=== PATIENT | female | born 1985 | race Caucasian/White ===

== ENCOUNTER 2020-03-07 07:27 | Outpatient (REF) | payer OTHER, SELFPAY | END 2020-03-07 07:28 | disposition home or self-care (01) | LOC: HO.LAB 07:27 | PROVIDERS: Visit Provider Internal Medicine | DX: Z20.822 Contact with and (suspected) exposure to COVID-19 (principal) | CPT/HCPCS: 36415; C9803; U0003 ==

== ENCOUNTER 2020-03-24 07:31 | Outpatient (REF) | payer OTHER, SELFPAY | END 2020-03-24 07:32 | disposition home or self-care (01) | LOC: HO.LAB 07:31 | PROVIDERS: Visit Provider Internal Medicine | DX: Z20.822 Contact with and (suspected) exposure to COVID-19 (principal) | CPT/HCPCS: 36415; C9803; U0003 ==

== ENCOUNTER → 2021-06-07 08:10 | Outpatient (BNVA) | payer OTHER, SELFPAY | PROVIDERS: PCP Hospitalist; Referring Provider Hospitalist; Visit Provider Physician Assistant Surgical | DX: Z13.89 Encounter for screening for other disorder (principal) ==

== ENCOUNTER → 2021-06-09 08:11 | Outpatient (BNVA) | payer OTHER, SELFPAY | PROVIDERS: PCP Hospitalist; Visit Provider Surgery | DX: Z13.89 Encounter for screening for other disorder (principal) ==

== ENCOUNTER 2021-06-21 | Outpatient (REF) | payer OTHER, SELFPAY ==
[2021-06-22 14:59] LABS: H Pylori Breath Test Positive (Negative)
== END 2021-06-21 00:01 | disposition home or self-care (01) ==
LOC: HO.LNP
PROVIDERS: Visit Provider Surgery
DX: E66.01 Morbid (severe) obesity due to excess calories (principal); K21.9 Gastro-esophageal reflux disease without esophagitis
CPT/HCPCS: 83013

== ENCOUNTER 2021-06-21 08:24 | Outpatient (REF) | payer OTHER, SELFPAY ==
--- NOTE | ~2021-06-21 | XR_ITS ---
EXAMINATION: XR CHEST CLINICAL INFORMATION: Obesity. Preop. COMPARISON: None TECHNIQUE: 2 views of the chest were obtained. FINDINGS: No significant abnormality is noted involving the heart, lungs, mediastinum, bony thorax or soft tissues. XR/XR chest 2V IMPRESSION: Unremarkable examination.
--- NOTE | 2021-06-21 08:33 | ECG_ITS ---
Test Reason : OBESITY Blood Pressure : / mmHG Vent. Rate : 073 BPM Atrial Rate : 073 BPM P-R Int : 122 ms QRS Dur : 080 ms QT Int : 390 ms P-R-T Axes : -05 022 096 degrees QTc Int : 429 ms Normal sinus rhythm Nonspecific T wave abnormality Borderline ECG No previous ECGs available Referred By: Joby Sparks Electronically Signed By:DANNY BASS
[2021-06-21 08:46] LABS: MANUAL DIFF FLAG NO
[2021-06-21 09:18] LABS: Basophils Percent Auto 0.3 % (0-2); Eosinophils Absolute Auto 0.1 X10*3/uL (0.0-0.4); Eosinophils Percent Auto 0.9 % (0-4); Hematocrit 35.6 % (37.0-47.0); Imm Gran Abs Auto 0.03 X10*3/uL (0.00-0.03); Imm Gran Pct Auto 0.3 % (0.0-0.4); Lymphocytes Absolute Auto 3.4 X10*3/uL (1.2-4.9); Lymphocytes Percent Auto 36.1 % (20-40); Mean Corpuscular HGB Conc 30.9 g/dl (31.0-35.0); Mean Corpuscular Hemoglobin 25.1 pg (27.0-33.0); Mean Corpuscular Volume 81.1 fL (80.0-98.0); Mean Platelet Volume 10.8 fL (9.4-12.3); Monocytes Absolute Auto 0.6 X10*3/uL (0.1-1.2); Neutrophils Absolute Auto 5.2 x10*3/uL (2.0-8.3); Neutrophils Percent Auto 56.4 % (45-73); Platelet Count 333 X10*3/uL (160-400); Red Blood Count 4.39 X10*6/uL (4.20-5.50); Red Cell Distribution Width 15.2 % (11.0-16.0); White Blood Count 9.3 X10*3/uL (4.8-10.8)
[2021-06-21 09:43] LABS: Alanine Aminotransferase 24 U/L (0-31); Albumin Level 3.7 g/dL (3.5-5.0); Alkaline Phosphatase 74 U/L (39-117); Anion Gap 10 (12-20); Aspartate Amino Transferase 22 U/L (5-31); Bilirubin Total 0.4 mg/dL (0.0-1.0); Blood Urea Nitrogen 12 mg/dL (9-16); C Reactive Protein 1.98 mg/dL (< or = 0.50); Calcium 9.2 mg/dL (8.4-10.2); Carbon Dioxide 29 mmol/L (22-29); Chloride 104 mmol/L (96-108); Cholesterol 192 mg/dL; Estimated Glomerular Filt Rate > 60; Glucose Random 83 mg/dL (60-115); HDL Cholesterol 31 mg/dL; Iron 37 mcg/dL (30-160); LDL Cholesterol Calculated 130 mg/dl; Percent Iron Saturation 10 % (15-50); Potassium 4.8 mmol/L (3.3-5.1); Sodium 138 mmol/L (135-145); Total Iron Binding Capacity 379 mcg/dL (228-428); Total Protein 7.6 g/dL (6.5-8.0); Triglycerides 157 mg/dL; Unsaturated Iron Binding 342 ug/dL
[2021-06-21 10:03] LABS: Estimated Average Glucose 105 mg/dL; Hemoglobin A1c % 5.3 %
[2021-06-21 10:18] LABS: Ferritin 23 ng/mL (10-122); TSH reflex Free T4 3.62 uIU/mL (0.32-4.0); Vitamin D 25-OH Total 12.4 ng/mL (>30)
[2021-06-21 10:25] LABS: Folate 15.4 ng/mL (> or = 4.0); Vitamin B12 411 pg/mL (200-900)
[2021-06-21 10:53] LABS: Insulin 14 uU/mL (2-29)
[2021-06-22 11:27] LABS: PTHI 101 pg/mL (16-77)
[2021-06-24 12:50] LABS: Zinc 68 mcg/dL (60-130)
[2021-06-25 21:11] LABS: Vitamin A 37 mcg/dL (38-98)
[2021-06-26 12:56] LABS: Vitamin B1 16 nmol/L (8-30)
== END 2021-06-21 08:25 | disposition home or self-care (01) ==
LOC: HO.XRAY 08:24
PROVIDERS: PCP Hospitalist; Visit Provider Surgery
DX: E66.01 Morbid (severe) obesity due to excess calories (principal); K21.9 Gastro-esophageal reflux disease without esophagitis
CPT/HCPCS: 36415; 71046; 80053; 80061; 82306; 82607; 82728; 82746; 83036; 83525; 83540; 83970; 84425; 84443; 84590; 84630; 85025; 86140; 93005

== ENCOUNTER → 2021-06-28 09:00 | Outpatient (BNVA) | payer OTHER, SELFPAY | PROVIDERS: PCP Hospitalist; Visit Provider Counselor Mental Health | DX: F43.21 Adjustment disorder with depressed mood (principal); E66.01 Morbid (severe) obesity due to excess calories | CPT/HCPCS: 90791 ==

== ENCOUNTER → 2021-07-23 08:42 | Outpatient (BNVA) | payer OTHER, SELFPAY | PROVIDERS: PCP Hospitalist; Referring Provider Hospitalist; Visit Provider Dietitian, Registered | DX: E66.01 Morbid (severe) obesity due to excess calories (principal); Z68.41 Body mass index [BMI] 40.0-44.9, adult | CPT/HCPCS: 97802 ==

== ENCOUNTER 2021-07-29 09:50 | Outpatient (REF) | payer OTHER, SELFPAY ==
--- NOTE | ~2021-07-29 | US_ITS ---
EXAMINATION: US COMPLETE ABDOMEN WITH LIVER ELASTOGRAPHY CLINICAL INFORMATION: Moderate obesity. COMPARISON: None. TECHNIQUE: Real-time imaging of the abdominal viscera. Noninvasive ultrasound liver fibrosis assessment is performed using Kya ElastPQ point quantification shear wave elastography (2D-SWE) with a C5-2 MHz transducer. Multiple elastography samples are obtained. FINDINGS: PANCREAS: The visualized pancreatic head and body are normal in appearance. The remainder of the pancreas is obscured from visualization by the overlying bowel gas. ABDOMINAL AORTA: The proximal, middle, and distal aortic segments are normal in caliber. INFERIOR VENA CAVA: Visualized portions are normal. LIVER: Normal. The liver demonstrates normal size, contour and echogenicity. No focal lesion or intrahepatic biliary duct dilatation. The right lobe measures 16.9 cm in length. The left lobe measures 11.6 cm in length. Portal flow is hepatopetal. Shear wave liver elastography median stiffness is 1.48 m/s (reference: normal median stiffness is 1.3 m/s or less). IQR/median stiffness to assess sampling precision is 0.08 (reference: good quality data set is IQR/median stiffness of 0.15 or less). GALLBLADDER: Normal. The gallbladder is physiologically distended without evidence of stones, sludge, polyps, wall thickening or pericholecystic fluid. COMMON BILE DUCT: Normal in caliber measuring 0.5 cm in diameter. RIGHT KIDNEY: Normal. No hydronephrosis. No renal calculi or focal parenchymal lesions. The kidney measures 10.7 cm in maximum dimension. LEFT KIDNEY: Normal. No hydronephrosis. No renal calculi or focal parenchymal lesions. The kidney measures 11.4 cm in maximum dimension. SPLEEN: Normal. The spleen measures 10.7 cm in maximum dimension. FREE FLUID: None. US/US abdomen comp w elastography IMPRESSION: 1. Hepatic steatosis. 2. Liver elastography: In the absence of other known clinical signs, measurements rule out compensated advanced chronic liver disease. If there are known clinical signs, further testing may be needed for confirmation. REFERENCE: Society of Radiologists in Ultrasound Liver Stiffness Thresholds (2020): LIVER STIFFNESS THRESHOLDS: *Liver Stiffness equal or less than 1.3 m/s: High probability of being normal. *Liver Stiffness less than 1.7 m/s: In the absence of other known clinical signs, rules out compensated advanced chronic liver disease. *Liver Stiffness 1.7-2.1 m/s: Suggestive of compensated advanced chronic liver disease but need further test for confirmation. *Liver Stiffness over 2.1 m/s: Rules in compensated advanced chronic liver disease. *Liver Stiffness over 2.4 m/s: Suggestive of clinically significant portal hypertension. QUALITY OF DATA SET: *IQR/Median value equal or less than 0.15 implies a quality data set. *IQR/Median value over 0.15 implies a poor quality data set. SIGNIFICANT CHANGE FROM PRIOR EXAM: Significant change if liver stiffness measurement is 10% or greater from prior exam. OTHER CONSIDERATIONS: The stage of liver fibrosis may be overestimated in the setting of acute hepatitis, liver inflammation, elevated liver function tests, hepatic vascular congestion, obstructive cholestasis, non-fasting state, and infiltrative diseases such as amyloidosis and lymphoma. In some patients with NAFLD, the liver stiffness thresholds for compensated advanced chronic liver disease may be lower. In causes other than viral hepatitis and NAFLD, liver stiffness thresholds are not well established.
--- NOTE | ~2021-07-29 | FL_ITS ---
EXAMINATION: XR FLUOROSCOPY UPPER GI WITH AIR CLINICAL INFORMATION: Moderate/severe obesity due to excess calories. COMPARISON: None TECHNIQUE: Routine upper GI air-contrast exam was performed in upright and lying position. FINDINGS: Following oral administration of thick barium and effervescent granules in upright view there is normal propagation bolus from the oral cavity through the pharynx, esophagus into stomach without any evidence of obstruction, narrowing or stricture. On placing patient supine and prone lying there is mild gastroesophageal reflux without hiatal hernia. The course, caliber and peristalsis of the stomach and the duodenum is normal. The mucosal pattern of the stomach and the duodenum is normal. A prominent Selin's gland is seen within the second segment of the duodenum on T2 images. FLUOROSCOPY TIME: 1.2 minutes DOSE AREA PRODUCT: 56.485 uGy-m2 (microgray-meter squared) FL/FL upper GI w air IMPRESSION: Moderate gastroesophageal reflux without hiatal hernia
== END 2021-07-29 09:51 | disposition home or self-care (01) ==
LOC: HO.US 09:50
PROVIDERS: Visit Provider Surgery
DX: E66.01 Morbid (severe) obesity due to excess calories (principal); K21.9 Gastro-esophageal reflux disease without esophagitis
CPT/HCPCS: 74246; 76705; 76981

== ENCOUNTER → 2021-07-30 08:34 | Outpatient (BNVA) | payer OTHER, SELFPAY | PROVIDERS: PCP Hospitalist; Referring Provider Hospitalist; Visit Provider Physician Assistant | DX: Z13.89 Encounter for screening for other disorder (principal) ==

== ENCOUNTER 2021-07-30 16:55 | Outpatient (REF) | payer OTHER, SELFPAY ==
[2021-07-31 15:18] LABS: H Pylori Breath Test Negative (Negative)
== END 2021-07-30 16:56 | disposition home or self-care (01) ==
LOC: HO.LNP 16:55
PROVIDERS: Visit Provider Physician Assistant
DX: Z01.818 Encounter for other preprocedural examination (principal); Z11.0 Encounter for screening for intestinal infectious diseases
CPT/HCPCS: 83013

== ENCOUNTER 2023-01-07 16:00 | Emergency (ER) | payer OTHER, SELFPAY ==
--- NOTE | ~2023-01-07 | XR_ITS ---
EXAMINATION: XR CHEST CLINICAL INFORMATION: Chest pain. COMPARISON: Chest radiograph 06/21/2021. TECHNIQUE: 2 views of the chest were obtained. FINDINGS: Unchanged appearance of the cardiomediastinal silhouette. No focal airspace opacities, pleural effusion or pneumothorax. No acute osseous findings. Visualized upper abdomen is within normal limits. XR/XR chest 2V IMPRESSION: No acute cardiopulmonary findings.
--- NOTE | 2023-01-07 16:02 | ECG_ITS ---
Test Reason : CHEST PAIN Blood Pressure : / mmHG Vent. Rate : 093 BPM Atrial Rate : 093 BPM P-R Int : 122 ms QRS Dur : 084 ms QT Int : 358 ms P-R-T Axes : 051 014 151 degrees QTc Int : 445 ms Normal sinus rhythm ST & T wave abnormality, consider lateral ischemia Abnormal ECG When compared with ECG of 21-JUN-2021 08:44, T wave inversion more evident in Lateral leads Heart rate has increased Referred By: Sameera Lucas Electronically Signed By:GLENROY GAN MD
[2023-01-07 16:12] VITALS: BP 201/93; PULSE 93; RESP 18; TEMP 36.2; O2SAT 98; BMI 55.5
[2023-01-07 16:27] LABS: MANUAL DIFF FLAG NO
[2023-01-07 16:28] LABS: Basophils Percent Auto 0.3 % (0-2); Eosinophils Absolute Auto 0.3 X10*3/uL (0.0-0.4); Eosinophils Percent Auto 1.9 % (0-4); Hematocrit 32.4 % (37.0-47.0); Hemoglobin 9.6 g/dl (12.0-16.0); Imm Gran Abs Auto 0.07 X10*3/uL (0.00-0.03); Imm Gran Pct Auto 0.5 % (0.0-0.4); Lymphocytes Percent Auto 20.7 % (20-40); Mean Corpuscular HGB Conc 29.6 g/dl (31.0-35.0); Mean Corpuscular Hemoglobin 23.8 pg (27.0-33.0); Mean Corpuscular Volume 80.2 fL (80.0-98.0); Mean Platelet Volume 10.6 fL (9.4-12.3); Monocytes Absolute Auto 1.1 X10*3/uL (0.1-1.2); Monocytes Percent Auto 7.1 % (2-11); Neutrophils Absolute Auto 10.2 x10*3/uL (2.0-8.3); Neutrophils Percent Auto 69.5 % (45-73); Platelet Count 343 X10*3/uL (160-400); Red Blood Count 4.04 X10*6/uL (4.20-5.50); Red Cell Distribution Width 16.5 % (11.0-16.0); White Blood Count 14.7 X10*3/uL (4.8-10.8)
--- NOTE | 2023-01-07 16:32 | ED_ITS ---
HPI - Chest Pain General Chief Complaint: Chest Pain Stated Complaint: chest pain Time Seen by Provider: 01/07/23 21:52 Source: patient Mode of arrival: ambulatory Limitations: no limitations History of Present Illness HPI narrative: Patient is a 29-year-old female with history of GERD, depression, anemia, obesity presenting to the emergency department with complaint of nasal congestion, cough and wheezing for the past 2 days. Reports today developed chest and rib pain associated with coughing episodes. Reports subjective fever yesterday, none today. Denies ear pain or sore throat. Denies history of asthma. Denies history of HTN. Has not used any OTC medications. complaint: other (shortness of breath) Onset (ago): day(s) Timing of current episode: episodic Prior episodes: Yes Onset: other (during coughing) Pain location: right chest Pain radiation: none Severity: moderate Quality: tightness Relieving factors: nothing Exacerbating factors: other (coughing) Context: recent illness Associated symptoms: dyspnea, fever and cough Treatment prior to arrival: none Related Data Previous Rx's Medication Instructions Recorded cholecalciferol (vitamin D3) 125 125 mcg PO DAILY #30 caps 06/23/21 mcg (5,000 unit) capsule iron,carbonyl 65 mg-vitamin C 125 1 tab PO DAILY #30 tabs 06/23/21 mg tablet,delayed release (Vitron-C) mecobalamin (vitamin B12) 1,000 1,000 mcg sublingual DAILY #30 tabs 06/23/21 mcg disintegrating tablet,sublingual vitamin A palmitate 3,000 mcg 10,000 unit PO .COMPLEX #30 caps 07/01/21 (10,000 unit) capsule albuterol sulfate 90 mcg/actuation 2 puff inhalation Q4-6H PRN 01/07/23 aerosol inhaler shortness of breath or wheezing #6.7 grams azithromycin 250 mg tablet See Rx Instructions PO .COMPLEX #6 01/07/23 tabs benzonatate 100 mg capsule 100 mg PO TID PRN cough #20 caps 01/07/23 Allergies Allergy/AdvReac Type Severity Reaction Status Date / Time No Known Allergies Allergy Verified 06/09/21 13:12 [No Known Allergies*] Review of Systems 2 Review of Systems: As per HPI. Yes all other systems are reviewed and are negative PMFSH Past Medical History Medical History (Updated 01/07/23 @ 23:02 by Marissa Cervantes NP) Depression GERD (gastroesophageal reflux disease) Family History Family History (Updated 06/07/21 @ 08:33 by Sherita Michaels) Maternal Grandmother Ovarian cancer Maternal Aunt Ovarian cancer Sister Asthma Sister Family history of thyroid problem Social History Social History (Updated 06/07/21 @ 08:34 by Sherita Michaels) Alcohol intake: current Alcohol intake frequency: holidays/special occasions only Alcohol type: beer, wine and hard liquor Patient Tobacco Use Status: Former Tobacco user Smoked in Last 30 Days: No Use of substances other than those prescribed or required for medical reasons: No Advance Directives: No Advance Directives Information Provided: No Patient : No Physical Exam 2 Vital Signs: Vital Signs: Last Vital Signs Temp 99.0 F 01/07/23 22:12 Pulse 71 01/07/23 22:29 Resp 18 01/07/23 22:29 BP 159/108 H 01/07/23 22:12 Pulse Ox 98 01/07/23 22:12 O2 Del Method Room Air 01/07/23 22:12 BMI result Body Mass Index 55.5 Vital signs have been reviewed and appear to be correct. Blood pressure elevated. Heart rate normal. Respiratory rate normal. Temperature normal. Oxygen saturation normal. Const: General: cooperative, no acute distress, alert and awake Nutritional Appearance: obese morbidly obese Orientation/consciousness: patient oriented x3 Limitations: no limitations HEENT: Head: Yes normocephalic and Yes atraumatic Ears: hearing grossly normal bilaterally, TM's normal bilaterally and EAC's normal General nose exam: Normal external nose present Face and sinus: Yes normal facial exam and Yes sinuses nontender Mouth: Normal oral and palatal mucosa present T hroat: Yes posterior oropharynx normal, Yes uvula midline and No uvular edema Eyes: Pupils: Equal, round and reactive pupils present Neck: Neck: Yes normal visual inspection, Yes full ROM and Yes supple Resp: Effort & Inspection: normal respiratory effort Auscultation: wheezes expiratory wheezes and throughout Cardio: Rate: regular rate Rhythm: regular rhythm Heart sounds: S1 normal heart sound present and S2 normal heart sound present GI: Inspection: Yes normal to inspection Palpation (GI): Soft to palpation and nontender Auscultation: normoactive bowel sounds : General: Yes no CVA tenderness Back/Spine/Pelvis: Back: no CVA tenderness Skin: General skin exam: elasticity normal and turgor normal Neuro: General: patient oriented x3, gait normal, tone normal, moves all extremities and CN's II-XI intact bilaterally Cranial nerves: Yes Equal, round and reactive pupils present Extrem: General: Yes normal to inspection, Yes full ROM, Yes capillary refill normal, Yes no calf tenderness and Yes pedal edema Psych: Appearance: grossly normal Mental Status: mental status grossly normal Speech and movement: Normal speech and movement present Course Course Course Narrative: this is a rapid medical exam. Defer additional HPI, ROS, PE to primary provider. 37-year-old female with a history of obesity presents to the ER with complaints of cough, congestion and chest pain. Will obtain labs, EKG, chest x-ray, COVID screen VSS Medications Administered Discontinued Medications Generic Name Dose Route Start Last Admin Trade Name Freq PRN Reason Stop Dose Admin Albuterol Sulfate 2.5 mg/ 5 mg 01/07/23 22:18 01/07/23 22:23 Albuterol Sulfate 2.5 mg INHALE 01/07/23 22:19 5 mg ONCE ONE Administration Medical Decision Making Medical Decision Making [facility] Narrative: Patient is a 29-year-old female with history of GERD, depression, anemia, obesity presenting to the emergency department with complaint of nasal congestion, cough and wheezing for the past 2 days. On exam patient is awake, A+Ox3, BP elevated, VS otherwise WNL, afebrile, normal neurological exam without focal deficits, physical exam findings as above. Given reported symptoms and physical exam findings, initial differential includes viral illness, Covid, flu, RSV, bronchitis, pneumonia, ACS. Labs notable for leukocytosis, anemia, initial troponin 5.9, no delta on repeat troponin. EKG shows normal sinus rhythm, rate 93 bpm, ST depression in lateral leads. HEART score of 3. Swabs for flu/Covid/RSV all negative. X-ray notable for no acute abnormalities. My interpretation is in agreement with the radiologist's interpretation. ED bronchodilator protocol ordered. Will discharge home with azithromycin, albuterol inhaler, patient given spacer by RT, and benzonatate. Instructed patient to follow up with PCP this week and instructed patient to notify PCP of high BP readings while in the ED. All results discussed with patient and all questions answered. Return precautions discussed at bedside. Patient verbalized understanding of and agreement with plan. Differential Diagnosis Differential Diagnoses: The differential diagnosis associated with the presentation includes As per MDM. Admission/Observation Consideration of admission/observation: Escalation of care including admission/observation considered Given concern for ACS, considered on arrival Lab Data [facility] Lab Attestation statement: I reviewed the patient's lab results. As per MDM. 01/07/23 16:18 01/07/23 16:18 Labs: Lab Results 01/07/23 01/07/23 01/07/23 Range/Units 16:18 16:19 22:09 WBC 14.7 H (4.8-10.8) X10*3/uL RBC 4.04 L (4.20-5.50) X10*6/uL Hgb 9.6 L (12.0-16.0) g/dl Hct 32.4 L (37.0-47.0) % MCV 80.2 (80.0-98.0) fL MCH 23.8 L (27.0-33.0) pg MCHC 29.6 L (31.0-35.0) g/dl RDW 16.5 H (11.0-16.0) % Plt Count 343 (160-400) X10*3/uL MPV 10.6 (9.4-12.3) fL Immature Gran % (Auto) 0.5 H (0.0-0.4) % Neut % (Auto) 69.5 (45-73) % Lymph % (Auto) 20.7 (20-40) % [place] % (Auto) 7.1 (2-11) % Eos % (Auto) 1.9 (0-4) % Baso % (Auto) 0.3 (0-2) % Lymph # (Auto) 3.0 (1.2-4.9) X10*3/uL [place] # (Auto) 1.1 (0.1-1.2) X10*3/uL Eos # (Auto) 0.3 (0.0-0.4) X10*3/uL Baso # (Auto) 0.0 (0.0-0.2) X10*3/uL Abs Immat Gran (auto) 0.07 H (0.00-0.03) X10*3/uL Absolute Neuts (auto) 10.2 H (2.0-8.3) x10*3/uL Absolute Nucleated RBC 0.000 (0.0-0.012) X10*3/uL Nucleated RBC % (auto) 0.0 (0.0-0.2) /100WBC Sodium 140 (135-145) mmol/L Potassium 3.6 D (3.3-5.1) mmol/L Chloride 107 (96-108) mmol/L Carbon Dioxide 26 (22-29) mmol/L Anion Gap 11 L (12-20) BUN 14 (9-16) mg/dL Creatinine 0.94 (0.5-1.4) mg/dL Estim Creat Clear Calc 113.1 Estimated GFR > 60 Random Glucose 94 (60-115) mg/dL Calcium 8.7 (8.4-10.2) mg/dL Total Bilirubin 0.3 (0.0-1.0) mg/dL Direct Bilirubin 0.2 (0.0-0.5) mg/dL AST 19 (5-31) U/L ALT 23 (0-31) U/L Alkaline Phosphatase 86 (39-117) U/L Troponin I High Sens 5.9 7.5 (<3.5-17.0) ng/L Total Protein 7.8 (6.5-8.0) g/dL Albumin 3.6 (3.5-5.0) g/dL Lipase 23 (8-78) U/L Influenza Type A (PCR) NEGATIVE (Negative) Influenza Type B (PCR) NEGATIVE (Negative) RSV RNA Qual (PCR) NEGATIVE (Negative) SARS-CoV-2 RNA (RT-PCR) NEGATIVE (Negative) Independent Interpretation I performed an independent interpretation of an: EKG and Plain X-Ray Interpretation: No acute abnormalities on chest x-ray EKG shows normal sinus rhythm, rate 93 bpm, ST depression in lateral leads. Radiology Impression Discussion of test interpretation with radiology: I have reviewed the radiologist's reading. Radiologist Impression: XR/XR chest 2V IMPRESSION: No acute cardiopulmonary findings. External Record Review External record reviewed: Inpatient record, Office record and Outpatient record Prescription Management I considered prescription management with: Antibiotic and Other Scores Heart Score History: -0- slightly suspicious ECG: -2- significant ST-deviation Age: -0- < or = 45 Risk factory: -1- 1 or 2 risk factors Troponin: -0- < or = normal limit Score: 3 Risk: 1.7% Discharge Plan Discharge Clinical Impression: Bronchitis Patient Disposition: Home, Self-Care Instructions: How to Use a Metered-Dose Inhaler (ED), Acute Bronchitis (ED) Additional Instructions: You were evaluated in the emergency department today for shortness of breath and wheezing. You are being treated for bronchitis with antibiotics, please complete the full course as prescribed. You are being prescribed an albuterol inhaler which you can use every 4-6 hours as needed for shortness of breath. You are being prescribed benzonatate which you can use every 8 hours as needed for cough. Please follow-up with your primary care provider this week. Your blood pressure was elevated in the emergency department, please notify your primary care provider of this. Return to the emergency department if you develop worsening shortness of breath, chest pain, palpitations, fever 100.4? F or greater, or any other concerning symptoms. Prescriptions: New azithromycin 250 mg tablet See Rx Instructions .ROUTE .COMPLEX Qty: 6 0RF Rx Instructions: For 250 mg dose pack: take 500 mg today (day 1), then 250 mg for 4 days (days 2-5) benzonatate 100 mg capsule 100 mg PO TID PRN (Reason: cough) Qty: 20 0RF albuterol sulfate 90 mcg/actuation HFA aerosol inhaler 2 puff inhalation Q4-6H PRN (Reason: shortness of breath or wheezing) Qty: 6.7 0RF No Action Vitron-C 65 mg iron- 125 mg tablet,delayed release (DR/EC) 1 tab PO DAILY Qty: 30 2RF Rx Instructions: swallow whole; do not chew/break/dissolve/open cholecalciferol (vitamin D3) 125 mcg (5,000 unit) capsule 125 mcg PO DAILY Qty: 30 2RF mecobalamin (vitamin B12) 1,000 mcg tablet,disintegrating 1,000 mcg sublingual DAILY Qty: 30 2RF Rx Instructions: place tablet under tongue and allow to dissolve for at least30 secs before swallowing vitamin A palmitate 10,000 unit capsule 10,000 unit PO .COMPLEX Qty: 30 0RF Rx Instructions: 10,000 units PO one per day;
[2023-01-07 16:44] LABS: Alanine Aminotransferase 23 U/L (0-31); Albumin Level 3.6 g/dL (3.5-5.0); Alkaline Phosphatase 86 U/L (39-117); Anion Gap 11 (12-20); Aspartate Amino Transferase 19 U/L (5-31); Bilirubin Direct 0.2 mg/dL (0.0-0.5); Bilirubin Total 0.3 mg/dL (0.0-1.0); Blood Urea Nitrogen 14 mg/dL (9-16); Calcium 8.7 mg/dL (8.4-10.2); Carbon Dioxide 26 mmol/L (22-29); Chloride 107 mmol/L (96-108); Creatinine Clr Calc Pharmacy 113.1; Estimated Glomerular Filt Rate > 60; Glucose Random 94 mg/dL (60-115); Lipase 23 U/L (8-78); Potassium 3.6 mmol/L (3.3-5.1); Sodium 140 mmol/L (135-145); Total Protein 7.8 g/dL (6.5-8.0)
[2023-01-07 16:52] LABS: Troponin-I High Sensitivity 5.9 ng/L (<3.5-17.0)
[2023-01-07 17:06] LABS: Influenza A PCR NEGATIVE (Negative); Influenza B PCR NEGATIVE (Negative); Resp Syncy Virus RNA Qual PCR NEGATIVE (Negative); SARS COV2 PCR INHOUSE NEGATIVE (Negative)
[2023-01-07 20:30] VITALS: BP 178/77; PULSE 81; RESP 18; O2SAT 98
--- NOTE | 2023-01-07 20:43 | PC.NURSE ---
this rn assumed care of pt. pt a&ox4, respirations even and unlabored. pt reporting onset of chest squeezing and shortness of breath after getting over a cold one week ago. pt reports the SOB increases on exertion and feels as if she can not catch a breath. pt lung sounds noted to have expiratory wheezing bilaterally. pt denies being around any one sick at this time. pt normal sinus on tele 82-85, sating at 98% room air.
[2023-01-07 22:12] VITALS: BP 159/108; PULSE 82; RESP 13; TEMP 37.2; O2SAT 98
[2023-01-07] MEDS: Albuterol Sulfate 2.5 MG, Albuterol Sulfate (0.083%) 2.5 MG 5 MG INHALE (22:23)
[2023-01-07 22:29] VITALS: PULSE 71; RESP 18; O2SAT 97
[2023-01-07 22:44] LABS: Troponin-I High Sensitivity 7.5 ng/L (<3.5-17.0)
[2023-01-07 23:17] VITALS: BP 143/71; PULSE 92; RESP 18; O2SAT 96
== END 2023-01-07 23:18 | disposition home or self-care (01) ==
PROVIDERS: Registered Nurse Emergency; Emergency Provider Student in an Organized Health Care Education/Training Program; PCP Hospitalist
DX: J40 Bronchitis, not specified as acute or chronic (principal); Z20.822 Contact with and (suspected) exposure to COVID-19; Z20.828 Contact with and (suspected) exposure to other viral communicable diseases; R50.9 Fever, unspecified; R06.02 Shortness of breath; I10 Essential (primary) hypertension; E66.9 Obesity, unspecified; Z68.43 Body mass index [BMI] 50.0-59.9, adult; Z79.899 Other long term (current) drug therapy
CPT/HCPCS: 0241U; 36415; 71046; 80048; 80076; 83690; 84484; 85025; 93005; 94640; 99284; 99285

== ENCOUNTER 2023-01-16 07:44 | Outpatient (AMB) | payer OTHER, SELFPAY ==
--- NOTE | 2023-01-16 07:57 | A.OFFPC_ITS ---
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: No Accompanied by: Self / Same As Patient Allergies No Known Allergies [No Known Allergies*] Allergy (Verified 01/16/23 08:14) Medication List - Last Reconciled 01/16/23 by Yulissa Salgado MD albuterol sulfate 90 mcg/actuation 2 puffs inhalation Q4-6H PRN azithromycin For 250 mg dose pack: take 500 mg today (day 1), then 250 mg for 4 days (days 2-5) Tobacco use date assessed: 01/16/23 Dental Screening Dental Screen Date: 01/16/23 Did you have a dental visit in the last 12 months?: No Did you have a dental problem in the last 6 months where you did not have access to dental care?: No Was dental information given to patient?: Patient has dentist HPI HPI Comments History of Present Illness Details This is 37-year-old female with morbid obesity that comes today as a hospital discharge follow-up due to bronchitis discharge date 01/07/2023. Chest x-ray was done and was normal. She completed a [facility] course and feels markedly improve. Labs were done while at the hospital and has elevated white blood cells and low hemoglobin due to anemia most likely due to abnormal menses which this will be repeated. She does have elevated blood pressure that has been present recently. No chest pain or shortness of breath. She does not believe she has any family history of elevated blood pressure. She complains of polyuria and not sleeping well due to going to the bathroom multiple times to urinate. Has hirsutism. For her blood pressure I will start her on amlodipine. Blood pressure will be recheck in 3 weeks by nurse navigator. Ultrasound renal will be order to rule out renal artery stenosis as a cause of elevated blood pressure. Also other labs will be done. For her morbid obesity I will refer her to [facility] weight management. Urinalysis done at the office shows hematuria due to being on her menses. 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 Sleep study will be order. [facility] Medical History (Updated 01/16/23 @ 09:48 by Yulissa Salgado MD) Depression GERD (gastroesophageal reflux disease) Surgical History No pertinent past surgical history Family History Maternal Grandmother Ovarian cancer Maternal Aunt Ovarian cancer Sister Asthma Sister Family history of thyroid problem Mother No problems noted. Social History Housing: Apartment Alcohol intake: current Alcohol intake frequency: holidays/special occasions only Alcohol type: beer, wine and hard liquor Patient Tobacco Use Status: Former Tobacco user e-Cigarette/Vaping Use: Never Used Second Hand Smoke Exposure: No service: No Current occupational status: employed Current occupational exposures/hazards: No Cognitive needs: No Hearing needs: No Vision needs: No Questionnaire PHQ-9 Over the last 2 weeks, how often have you been bothered by any of the following problems? 1. Little interest or pleasure in doing things: not at all 2. Feeling down, depressed, or hopeless: not at all 3. Trouble falling or staying asleep, or sleeping too much: not at all 4. Feeling tired or having little energy: not at all 5. Poor appetite or overeating: not at all 6. Feeling bad about yourself - or that you are a failure or have let yourself or your family down: not at all 7. Trouble concentrating on things, such as reading the newspaper or watching television: not at all 8. Moving or speaking so slowly that other people could have noticed. Or the opposite - being so fidgety or restless that you have been moving around a lot more than usual: not at all 9. Thoughts that you would be better off or of hurting yourself in some way: not at all Total score: 0 Depression Screening Interpretation: Negative Depression Screening Done: Yes 13658 - PHQ-9 Billing: Yes Source: Developed by Eldon Amaroet B.W. Jorge, Alpesh Parker and colleagues, with an educational wilman from [employer]. Thrive Questionnaire Date Thrive assessed: 01/16/23 I am a: Patient What is your living situation today?: I have a steady place to live Within the past 12 months, did the food you bought not last and you didn't have the money to get more?: Never true Within the past 12 months, did you worry whether your food would run out before you got money to buy more?: Never true Do you have trouble paying for medicines?: No Do you have trouble getting transportation to medical appointments?: No Do you have trouble paying your heating and electricity bill?: No Do you have trouble taking care of your child, family member or friend?: No Do you have trouble with day-to-day activities such as bathing, preparing meals, shopping, managing finances, etc.?: No Are you currently unemployed and looking for a job?: No Are you interested in more education?: No Please select the resources that you would like help with: None Currently or been in a relationship where the following occur: no concerns reported AUDIT C Alcohol Use Questionnaire (AUDIT-C) 1. How often do you have a drink containing alcohol?: Monthly or less 2. How many drinks containing alcohol do you have on a typical day when you are drinking?: 1 or 2 3. How often do you have six or more drinks on one occasion?: Never Total Score: 1 Score Reviewed/Action Taken: No BRITANY-7 AMB Questionnaire BRITANY-7 Date BRITANY - 7 assessed: 01/16/23 Feeling nervous, anxious, or on edge: 0 = Not at all Not being able to stop or control worryin = Not at all Worrying too much about different things: 0 = Not at all Trouble relaxin = Not at all Being so restless that it is hard to sit still: 0 = Not at all Becoming easily annoyed or irritable: 0 = Not at all Feeling afraid as if something awful might happen: 0 = Not at all Total BRITANY-7 score (0-4 normal; 5-9 mild; 10-14 moderate; 15-21 severe): 0 Source: Developed by Drs. Antonio Torres, Fidelia PatelAlpesh and colleagues, with an educational wilman from [employer]. BRITANY-7 Assessment Billing BRITANY-7 Assessment Tool: BRITANY-7 Assessment 07015 Review of Systems Const All systems reviewed & are unremarkable except as noted in HPI and below Eyes Reports no additional complaints, Denies change in vision and Denies other visual disturbances Card Denies chest pain at rest, Denies chest pain with activity, Denies edema, Denies irregular heart rhythm, Denies claudication, Denies dyspnea, Denies dyspnea on exertion, Denies orthopnea, Denies paroxysmal nocturnal dyspnea and Denies slow heart rate Resp Denies cough, Denies dyspnea and Denies dyspnea on exertion GI Denies abdominal pain, Denies change in bowel habits, Denies excessive flatus, Denies nausea and Denies vomiting Denies urinary incontinence, Denies urinary hesitancy and Denies urinary urgency Musc Denies abnormal gait, Denies atrophy, Denies deformity and Denies limited range of motion Skin/Breast Denies bleeding lesions, Denies changing lesions and Denies rash Neuro Denies abnormal gait and Denies lack of coordination Physical exam (Primary Care) Vital Signs: Last Vital Signs BP 190/110 H 01/16/23 08:32 BMI result Body Mass Index 55.3 Tobacco/Smoking Status: Tobacco use Status Tobacco use date assessed 01/16/23 01/16/23 08:03 Patient Tobacco Use Status Former Tobacco user 01/16/23 08:03 e-Cigarette/Vaping Use Never Used 01/16/23 08:03 PHQ-9: PHQ-9 Score PHQ-9: Total score 0 01/16/23 08:42 Depression Screening Interpretation: Negative Thrive Assessment: Date of Thrive Assessment Date Thrive assessed 01/16/23 01/16/23 08:03 Currently or been in a relationship where the following occur: no concerns reported Eyes General: appearance normal, both eyes and all related structures Eyelids: Yes eyelids normal Conjunctivae: conjunctivae normal Neck Neck: Yes normal visual inspection and Yes supple Resp Effort & Inspection: normal respiratory effort Auscultation: clear to auscultation bilaterally Cardio Jugular venous distension: no JVD Rate: regular rate Rhythm: regular rhythm Heart sounds: S1 normal heart sound present and S2 normal heart sound present Extrem General: Yes full ROM Office Procedures Flu Questionnaire Does the patient have a severe egg allergy?: No Results AMB Urinalysis, Automated UA Leukoctes 0 Monse/uL Last Edit by Mirian Manning, RMA on 01/16/23 08:43 UA Nitrite Negative Last Edit by Mirian Manning, RMA on 01/16/23 08:43 UA Urobilinogen 0.2 mg/dL Last Edit by Mirian Manning, RMA on 01/16/23 08: 43 UA Protein 1 mg/dL Last Edit by Mirian Manning, RMA on 01/16/23 08:43 UA pH 6.0 Last Edit by Mirian Manning, RMA on 01/16/23 08:43 UA Blood 3 Jovany/uL Last Edit by Mirian Manning, RMA on 01/16/23 08:43 UA Specific [place] 1.025 Last Edit by Mirian Manning, RMA on 01/16/23 08 :43 UA Ketone Negative Last Edit by Mirian Manning, RMA on 01/16/23 08:43 UA Bilirubin 0 mg/dL Last Edit by Mirian Manning, RMA on 01/16/23 08:43 UA Glucose 0 mg/dL Last Edit by Mirian Manning, RMA on 01/16/23 08:43 Immunizations flu vacc [id number] 6mos up(PF) 60 mcg(15 mcgx4)/0.5 mL IM syringe Performing Provider: Yulissa Salgado MD [facility] Documented (not given) by: Billykatlin Manning ARISTEOJadiel on 01/16/23 08:04 Reason Not Given: Patient Refused Results Reviewed Results Reviewed: Laboratory Last Values Urine pH (Auto) 6.0 01/16/23 08:38 Specific [place] (Auto) 1.025 01/16/23 08:38 Urine Protein (Auto) 1 mg/dL 01/16/23 08:38 Glucose (UA)(Auto) 0 mg/dL 01/16/23 08:38 Urine Ketones (Auto) Negative 01/16/23 08:38 Urine Blood (Auto) 3 Jovany/uL 01/16/23 08:38 Urine Nitrite (Auto) Negative 01/16/23 08:38 Urine Bilirubin (Auto) 0 mg/dL 01/16/23 08:38 Urine Urobilinogen (Auto) 0.2 mg/dL 01/16/23 08:38 Leukocyte Esterase (Auto) 0 Monse/uL 01/16/23 08:38 Assessment and Plan Assessment & Plan (1) Hospital discharge follow-up: Code(s): Z09 - Encounter for follow-up examination after completed treatment for conditions other than malignant neoplasm Plan: Discharge date 01/07/2023 due to bronchitis. Chest x-ray was negative. Labs show elevated white blood cells and anemia which will be repeated. Still use r escue inhaler. (2) Morbid obesity with BMI of 50.0-59.9, adult: Code(s): E66.01 - Morbid (severe) obesity due to excess calories; Z68.43 - Body mass index [BMI] 50.0-59.9, adult Plan: Referred to [facility] weight management. BMI goal is less than 30. (3) Bronchitis: Code(s): J40 - Bronchitis, not specified as acute or chronic Plan: Markedly improved. Still use rescue inhaler when wheezing occasionally. Completed [facility] course (4) Essential hypertension: Code(s): I10 - Essential (primary) hypertension Plan: Start amlodipine. Blood pressure goal is equal or less than 130/80. Blood pressure will be recheck in 3 weeks by nurse navigator. (5) Daytime sleepiness: Code(s): R40.0 - Somnolence Plan: Mosier score Scale of 15 therefore sleep study will be order. Patient was advised to lose weight. (6) Anemia: Code(s): D64.9 - Anemia, unspecified Qualifiers: Anemia type: iron deficiency Iron deficiency anemia type: chronic blood loss Qualified Code(s): D50.0 - Iron deficiency anemia secondary to blood loss (chronic) Plan: Repeat hemoglobin. For her abnormal menses she was referred to OBGYN. Orders: Orders Vitamin B12 and Folate Today E53.8 - Deficiency of other specified B group vitamins Comprehensive [place]. Panel Fast Today I10 - Essential (primary) hypertension Vitamin A Today E50.9 - Vitamin A deficiency, unspecified Aldost/Renin Today I10 - Essential (primary) hypertension US renal doppler Today I10 - Essential (primary) hypertension US renal BI Today I10 - Essential (primary) hypertension AMB Urinalysis Automated Today R35.89 - Other polyuria Influenza [id number] Immunization Today Z23 - Encounter for immunization Vitamin D 25-OH Total Today E55.9 - Vitamin D deficiency, unspecified Complete Blood Count Auto Diff Today D64.9 - Anemia, unspecified IRON PROFILE Today D64.9 - Anemia, unspecified Thyroid Stimulating Hormone Today E66.01 - Morbid (severe) obesity due to excess calories, Z68.43 - Body mass index [BMI] 50.0-59.9, adult Metanephrines, 24hr Urine Today I10 - Essential (primary) hypertension RT home sleep study Today R40.0 - Somnolence Referrals Medical Weight Management Referral E66.01 - Morbid (severe) obesity due to excess calories, Z68.43 - Body mass index [BMI] 50.0-59.9, adult GEOLOGY SCIENTIST Referral N92.6 - Irregular menstruation, unspecified Medications: New amlodipine 5 mg PO DAILY 90 days 90 tabs 1RF I10 - Essential (primary) hypertension blood pressure monitor As directed 1 ea 0RF I10 - Essential (primary) hypertension Coding Level of Care Code TCM Mod MDM <= 14 Days Diagnoses Hospital discharge follow-up Z09 Morbid obesity with BMI of 50.0-59.9, adult E66.01; Z68.43 Bronchitis J40 Essential hypertension I10 Daytime sleepiness R40.0 Iron deficiency anemia due to chronic blood loss D50.0 Anemia type: iron deficiency Iron deficiency anemia type: chronic blood loss Additional Codes BRITANY-7 Assessment Billing - BRITANY-7 Assessment Tool: BRITANY-7 Assessment 93912 ([id number]) Time Spent (min) 28
[2023-01-16 07:58] VITALS: BP 192/112; BMI 55.3
[2023-01-16 08:32] VITALS: BP 190/110
== END 2023-01-16 08:44 | disposition home or self-care (01) ==
PROVIDERS: PCP Hospitalist; Visit Provider Internal Medicine
DX: J40 Bronchitis, not specified as acute or chronic (principal); Z09 Encounter for follow-up examination after completed treatment for conditions other than malignant neoplasm; E66.01 Morbid (severe) obesity due to excess calories; Z68.43 Body mass index [BMI] 50.0-59.9, adult; I10 Essential (primary) hypertension; R40.0 Somnolence; D50.0 Iron deficiency anemia secondary to blood loss (chronic); R35.89 Other polyuria
CPT/HCPCS: 81003; 99214

== ENCOUNTER 2023-01-19 23:46 | Emergency (ER) | payer SELFPAY ==
--- NOTE | 2023-01-19 23:51 | ECG_ITS ---
Test Reason : chest pain Blood Pressure : / mmHG Vent. Rate : 093 BPM Atrial Rate : 093 BPM P-R Int : 124 ms QRS Dur : 086 ms QT Int : 362 ms P-R-T Axes : 047 015 135 degrees QTc Int : 450 ms Normal sinus rhythm Nonspecific T wave abnormality Left ventricular hypertrophy with repolarization abnormality ( Danny product ) Abnormal ECG When compared with ECG of 07-JAN-2023 16:03, No significant change was found Referred By: Generic ED Physician Electronically Signed By:GLENROY GAN MD
[2023-01-20 00:01] VITALS: BP 208/99; PULSE 99; RESP 18; TEMP 36.8; O2SAT 95; BMI 55.4
[2023-01-20 00:33] LABS: MANUAL DIFF FLAG NO
[2023-01-20 00:34] LABS: Basophils Percent Auto 0.2 % (0-2); Eosinophils Absolute Auto 0.1 X10*3/uL (0.0-0.4); Eosinophils Percent Auto 0.7 % (0-4); Hematocrit 31.1 % (37.0-47.0); Hemoglobin 9.2 g/dl (12.0-16.0); Imm Gran Abs Auto 0.06 X10*3/uL (0.00-0.03); Imm Gran Pct Auto 0.5 % (0.0-0.4); Lymphocytes Absolute Auto 2.9 X10*3/uL (1.2-4.9); Lymphocytes Percent Auto 22.7 % (20-40); Mean Corpuscular HGB Conc 29.6 g/dl (31.0-35.0); Mean Corpuscular Volume 77.8 fL (80.0-98.0); Mean Platelet Volume 9.9 fL (9.4-12.3); Monocytes Absolute Auto 0.9 X10*3/uL (0.1-1.2); Monocytes Percent Auto 6.8 % (2-11); Neutrophils Absolute Auto 8.9 x10*3/uL (2.0-8.3); Neutrophils Percent Auto 69.1 % (45-73); Platelet Count 336 X10*3/uL (160-400); Red Cell Distribution Width 16.3 % (11.0-16.0); White Blood Count 12.8 X10*3/uL (4.8-10.8)
[2023-01-20 00:46] LABS: Anion Gap 12 (12-20); Blood Urea Nitrogen 17 mg/dL (9-16); Calcium 9.4 mg/dL (8.4-10.2); Carbon Dioxide 26 mmol/L (22-29); Chloride 106 mmol/L (96-108); Creatinine Clr Calc Pharmacy 83.6; Estimated Glomerular Filt Rate 47; Glucose Random 115 mg/dL (60-115); Potassium 4.1 mmol/L (3.3-5.1); Sodium 140 mmol/L (135-145)
--- NOTE | 2023-01-20 00:50 | ED.CHESTPAIN ---
HPI - Chest Pain General Chief Complaint: Chest Pain Stated Complaint: Chest Pain Time Seen by Provider: 01/20/23 00:50 Source: patient Mode of arrival: ambulatory Limitations: no limitations History of Present Illness HPI narrative: Patient 29-day-old obese patient with history of questionable sleep apnea recently diagnosed with hypertension unable to get her medication filled because of insurance reasons notice mid chest pain yesterday and again today became very anxious chest pain is localized to the mid chest no chest pain aunt after arrival no radiation to chest pain pain was sharp in nature lasting only for few minutes no significant shortness of breath was saturating 95% at room air on arrival patient's blood pressure was 208/99 , patient was very anxious as she did not have any blood pressure medicine at home Related Data Previous Rx's Medication Instructions Recorded albuterol sulfate 90 mcg/actuation 2 puff inhalation Q4-6H PRN 01/07/23 aerosol inhaler shortness of breath or wheezing #6.7 grams azithromycin 250 mg tablet See Rx Instructions PO .COMPLEX #6 01/07/23 tabs blood pressure monitor #1 ea 01/16/23 losartan 50 mg-hydrochlorothiazide 1 tab PO DAILY #30 tabs 01/20/23 12.5 mg tablet Allergies Allergy/AdvReac Type Severity Reaction Status Date / Time No Known Allergies Allergy Verified 01/16/23 08:14 [No Known Allergies*] Review of Systems Review of Systems: Yes all other systems are reviewed and are negative PMFSH Past Medical History Medical History Depression GERD (gastroesophageal reflux disease) Surgical History No pertinent past surgical history Family History Family History Maternal Grandmother Ovarian cancer Maternal Aunt Ovarian cancer Sister Asthma Sister Family history of thyroid problem Mother No problems noted. Social History Housing: Apartment Alcohol intake: current Alcohol intake frequency: holidays/special occasions only Alcohol type: beer, wine and hard liquor Patient Tobacco Use Status: Former Tobacco user e-Cigarette/Vaping Use: Never Used Second Hand Smoke Exposure: No Advance Directives: No Advance Directives Information Provided: No service: No Current occupational status: employed Current occupational exposures/hazards: No Cognitive needs: No Hearing needs: No Vision needs: No Physical Exam Vital Signs: Vital Signs: Last Vital Signs Temp 98.9 F 01/20/23 01:42 Pulse 83 01/20/23 01:42 Resp 16 01/20/23 01:42 BP 151/79 H 01/20/23 01:42 Pulse Ox 98 01/20/23 01:42 O2 Del Method Room Air 01/20/23 01:42 BMI result Body Mass Index 55.4 Appearance: Alert. Oriented X3. No acute distress. Obese Eyes: PERRLA,no pallor ENT: Pharynx normal. Oral Mucosa moist Neck: Normal inspection. Neck supple. CVS: Normal heart rate and rhythm. Pulses normal. Respiratory: No respiratory distress. Equal air entry bilateral, no wheezing/rales/rhonchi Abdomen: Soft and nontender. Bowel sounds are present, Skin: Skin warm and dry. Normal skin color. Normal skin turgor. Extremities: trace lower extremity edema. No calf tenderness Neuro: Oriented X 3. Medications Administered Discontinued Medications Generic Name Dose Route Start Last Admin Trade Name Freq PRN Reason Stop Dose Admin Losartan Potassium 50 mg 01/20/23 01:52 01/20/23 01:57 Losartan Potassium 50 Mg Tablet PO 01/20/23 01:53 50 mg ONCE ONE Administration Protocol Medical Decision Making Medical Decision Making [facility] Narrative: Patient obese with atypical chest pain no acute ischemic changes normal troponin patient with increased anxiety during stay in the ER blood pressure improved will change the medication to losartan/hctz as patient unable to buy her medicine likely patient also has sleep apnea she planning to get sleep study next week Differential Diagnosis Differential Diagnoses: The differential diagnosis associated with the presentation includes ACS/chest wall pain/anxiety/hypertension Admission/Observation Consideration of admission/observation: Escalation of care including admission/observation considered Lab Data [facility] Lab Attestation statement: I reviewed the patient's lab results. 01/20/23 00:29 01/20/23 00:29 Labs: Lab Results 01/20/23 Range/Units 00:29 WBC 12.8 H (4.8-10.8) X10*3/uL RBC 4.00 L (4.20-5.50) X10*6/uL Hgb 9.2 L (12.0-16.0) g/dl Hct 31.1 L (37.0-47.0) % MCV 77.8 L (80.0-98.0) fL MCH 23.0 L (27.0-33.0) pg MCHC 29.6 L (31.0-35.0) g/dl RDW 16.3 H (11.0-16.0) % Plt Count 336 (160-400) X10*3/uL MPV 9.9 (9.4-12.3) fL Immature Gran % (Auto) 0.5 H (0.0-0.4) % Neut % (Auto) 69.1 (45-73) % Lymph % (Auto) 22.7 (20-40) % [place] % (Auto) 6.8 (2-11) % Eos % (Auto) 0.7 (0-4) % Baso % (Auto) 0.2 (0-2) % Lymph # (Auto) 2.9 (1.2-4.9) X10*3/uL [place] # (Auto) 0.9 (0.1-1.2) X10*3/uL Eos # (Auto) 0.1 (0.0-0.4) X10*3/uL Baso # (Auto) 0.0 (0.0-0.2) X10*3/uL Abs Immat Gran (auto) 0.06 H (0.00-0.03) X10*3/uL Absolute Neuts (auto) 8.9 H (2.0-8.3) x10*3/uL Absolute Nucleated RBC 0.000 (0.0-0.012) X10*3/uL Nucleated RBC % (auto) 0.0 (0.0-0.2) /100WBC Sodium 140 (135-145) mmol/L Potassium 4.1 (3.3-5.1) mmol/L Chloride 106 (96-108) mmol/L Carbon Dioxide 26 (22-29) mmol/L Anion Gap 12 (12-20) BUN 17 H (9-16) mg/dL Creatinine 1.27 (0.5-1.4) mg/dL Estim Creat Clear Calc 83.6 Estimated GFR 47 Random Glucose 115 (60-115) mg/dL Calcium 9.4 D (8.4-10.2) mg/dL Troponin I High Sens 10.7 (<3.5-17.0) ng/L Independent Interpretation I performed an independent interpretation of an: EKG Interpretation: Normal sinus rhythm 103 beats per minute LVH no acute ST-T changes no acute ischemia Discharge Plan Discharge Clinical Impression: Chest pain, Hypertension Patient Disposition: Home, Self-Care Instructions: Chest Pain (ED), Hypertension (ED) Additional Instructions: Take losartan for blood pressure instead of amlodipine as prescribed previously Follow with PCP for sleep studies as scheduled try to reduce weight Follow-up with your PCP Your BMI is above the ideal range. I deal BMI is between 18.5- 24. BMI is calculated from you height and weight. Weight gain happens when you taken more calories than you burn off. Discussed need to increase activity and weight reduction. Recommended focusing on improving health instead of dieting. Mediterranean diet is a healthy diet that helps, limit food high in fat, sugar, and calories. Eat slowly, pay attention to portion sizes, plan your meals ahead of time, start regular physical activity, at least 150 minutes of moderate intensity exercise, or 90 minutes per week of vigorous exercise. Keeping a food diary, tracking what you eat and your physical activity can help assess what improvements you can make. There are many health problems associated with being overweight/obese, so it is important to improve your diet and exercise. There are medications and surgical options available, but Lifestyle changes are the 1st step. Prescriptions: New losartan-hydrochlorothiazide 50-12.5 mg tablet 1 tab PO DAILY Qty: 30 2RF Discontinued amlodipine 5 mg tablet 5 mg PO DAILY 90 Days Qty: 90 1RF No Action azithromycin 250 mg tablet See Rx Instructions .ROUTE .COMPLEX Qty: 6 0RF Rx Instructions: For 250 mg dose pack: take 500 mg today (day 1), then 250 mg for 4 days (days 2-5) albuterol sulfate 90 mcg/actuation HFA aerosol inhaler 2 puff inhalation Q4-6H PRN (Reason: shortness of breath or wheezing) Qty: 6.7 0RF (DME) blood pressure monitor Kit See Rx Instructions .Route Qty: 1 0RF Rx Instructions: As directed
[2023-01-20 00:54] LABS: Troponin-I High Sensitivity 10.7 ng/L (<3.5-17.0)
[2023-01-20 01:42] VITALS: BP 151/79; PULSE 83; RESP 16; TEMP 37.2; O2SAT 98
[2023-01-20] MEDS: Losartan Potassium 50 MG TABLET PO (01:57)
== END 2023-01-20 02:09 | disposition home or self-care (01) ==
PROVIDERS: Emergency Provider Internal Medicine; PCP Internal Medicine
DX: R07.89 Other chest pain (principal); I10 Essential (primary) hypertension; Z79.899 Other long term (current) drug therapy
CPT/HCPCS: 36415; 80048; 84484; 85025; 93005; 99283; 99284

== ENCOUNTER 2023-01-31 08:45 | Outpatient (REF) | payer OTHER, SELFPAY ==
[2023-01-31 09:22] LABS: MANUAL DIFF FLAG NO
[2023-01-31 09:36] LABS: Basophils Percent Auto 0.4 % (0-2); Eosinophils Absolute Auto 0.1 X10*3/uL (0.0-0.4); Eosinophils Percent Auto 1.1 % (0-4); Hematocrit 29.2 % (37.0-47.0); Hemoglobin 8.5 g/dl (12.0-16.0); Imm Gran Abs Auto 0.05 X10*3/uL (0.00-0.03); Imm Gran Pct Auto 0.5 % (0.0-0.4); Lymphocytes Absolute Auto 3.1 X10*3/uL (1.2-4.9); Lymphocytes Percent Auto 30.2 % (20-40); Mean Corpuscular HGB Conc 29.1 g/dl (31.0-35.0); Mean Corpuscular Hemoglobin 22.6 pg (27.0-33.0); Mean Corpuscular Volume 77.7 fL (80.0-98.0); Mean Platelet Volume 10.2 fL (9.4-12.3); Monocytes Absolute Auto 0.7 X10*3/uL (0.1-1.2); Monocytes Percent Auto 6.6 % (2-11); Neutrophils Absolute Auto 6.2 x10*3/uL (2.0-8.3); Neutrophils Percent Auto 61.2 % (45-73); Platelet Count 370 X10*3/uL (160-400); Red Blood Count 3.76 X10*6/uL (4.20-5.50); Red Cell Distribution Width 16.6 % (11.0-16.0); White Blood Count 10.1 X10*3/uL (4.8-10.8)
[2023-01-31 10:24] LABS: Alanine Aminotransferase 24 U/L (0-31); Albumin Level 3.6 g/dL (3.5-5.0); Alkaline Phosphatase 81 U/L (39-117); Anion Gap 10 (12-20); Aspartate Amino Transferase 24 U/L (5-31); Bilirubin Total 0.3 mg/dL (0.0-1.0); Blood Urea Nitrogen 12 mg/dL (9-16); Calcium 8.8 mg/dL (8.4-10.2); Carbon Dioxide 27 mmol/L (22-29); Chloride 105 mmol/L (96-108); Estimated Glomerular Filt Rate > 60; Glucose Fasting 102 mg/dL (60-99); Iron 22 mcg/dL (30-160); Percent Iron Saturation 7 % (15-50); Potassium 4.4 mmol/L (3.3-5.1); Sodium 138 mmol/L (135-145); Total Iron Binding Capacity 326 mcg/dL (228-428); Total Protein 7.6 g/dL (6.5-8.0); Unsaturated Iron Binding 304 ug/dL
[2023-01-31 10:41] LABS: Thyroid Stimulating Hormone 3.69 uIU/mL (0.32-4.0)
[2023-01-31 10:44] LABS: Vitamin B12 364 pg/mL (200-900)
[2023-02-04 17:53] LABS: Aldosterone/Renin Ratio 3.3 Ratio (0.9-28.9); Plasma Renin Activity 2.15 ng/mL/h (0.25-5.82)
[2023-02-04 18:54] LABS: Vitamin A 39 mcg/dL (38-98)
== END 2023-01-31 08:46 | disposition home or self-care (01) ==
LOC: HO.LAB 08:45
PROVIDERS: PCP Internal Medicine; Visit Provider Internal Medicine
DX: E50.9 Vitamin A deficiency, unspecified (principal); I10 Essential (primary) hypertension; D64.9 Anemia, unspecified; E53.8 Deficiency of other specified B group vitamins; E55.9 Vitamin D deficiency, unspecified; E66.01 Morbid (severe) obesity due to excess calories; Z68.43 Body mass index [BMI] 50.0-59.9, adult
CPT/HCPCS: 36415; 80053; 82088; 82306; 82607; 82746; 83540; 84443; 84590; 85025

== ENCOUNTER 2023-02-04 08:11 | Outpatient (REF) | payer OTHER, SELFPAY ==
[2023-02-12 01:13] LABS: Metanephrine, Free 24U 168 mcg/24 h (36-190); Normetanephrine, Free 24U 982 mcg/24 h (35-482); Total Metanephrine, Free 24U 1150 mcg/24 h (115-695); Total Volume 24U 2400 mL
== END 2023-02-04 08:12 | disposition home or self-care (01) ==
LOC: HO.LAB 08:11
PROVIDERS: Visit Provider Internal Medicine
DX: I10 Essential (primary) hypertension (principal)
CPT/HCPCS: 83835

== ENCOUNTER 2023-02-17 08:48 | Outpatient (REF) | payer OTHER, SELFPAY ==
--- NOTE | ~2023-02-17 | US_ITS ---
EXAMINATION: ULTRASOUND RENAL WITH DOPPLER CLINICAL INFORMATION: Hypertension. COMPARISON: None. TECHNIQUE: Real-time grayscale, color Doppler, and duplex Doppler evaluation of the kidneys and renal vasculature was performed. FINDINGS: RENAL MEASUREMENTS: Right: 11.1 x 5.5 x 4.9 cm (Sag x AP x TV) Left: 10.6 x 5.9 x 6.1 cm (Sag x AP x TV) The renal parenchyma appears normal. No hydronephrosis or nephrolithiasis. DOPPLER INTERROGATION: AORTA: Mid aorta: 150 cm/sec RIGHT MAIN RENAL ARTERY: Proximal: Not visible, but normal distal waveform. Mid: 55 cm/sec Distal: 75 cm/sec LEFT MAIN RENAL ARTERY: Proximal: Not visible, but normal distal waveform. Mid: 56 cm/sec Distal: 71 cm/sec RENAL-AORTIC RATIO (RAR): Right: Not calculated due to mid aortic velocity outside of range 40-100 cm/s making RAR inaccurate. Left: Not calculated due to mid aortic velocity outside of range 40-100 cm/s making RAR inaccurate. SEGMENTAL RESISTIVE INDICES: Right: 0.66-0.75 Left: 0.68-0.16 RENAL VEINS: Right: Patent with normal waveform. Left: Patent with normal waveform. US/US renal BI IMPRESSION: Mildly limited examination as the proximal renal arteries are not visible however the distal renal artery waveforms and velocity are normal and argue against hemodynamically significant upstream stenosis. The kidneys are normal in appearance.
--- NOTE | ~2023-02-17 | US_ITS ---
EXAMINATION: ULTRASOUND RENAL WITH DOPPLER CLINICAL INFORMATION: Hypertension. COMPARISON: None. TECHNIQUE: Real-time grayscale, color Doppler, and duplex Doppler evaluation of the kidneys and renal vasculature was performed. FINDINGS: RENAL MEASUREMENTS: Right: 11.1 x 5.5 x 4.9 cm (Sag x AP x TV) Left: 10.6 x 5.9 x 6.1 cm (Sag x AP x TV) The renal parenchyma appears normal. No hydronephrosis or nephrolithiasis. DOPPLER INTERROGATION: AORTA: Mid aorta: 150 cm/sec RIGHT MAIN RENAL ARTERY: Proximal: Not visible, but normal distal waveform. Mid: 55 cm/sec Distal: 75 cm/sec LEFT MAIN RENAL ARTERY: Proximal: Not visible, but normal distal waveform. Mid: 56 cm/sec Distal: 71 cm/sec RENAL-AORTIC RATIO (RAR): Right: Not calculated due to mid aortic velocity outside of range 40-100 cm/s making RAR inaccurate. Left: Not calculated due to mid aortic velocity outside of range 40-100 cm/s making RAR inaccurate. SEGMENTAL RESISTIVE INDICES: Right: 0.66-0.75 Left: 0.68-0.16 RENAL VEINS: Right: Patent with normal waveform. Left: Patent with normal waveform. US/US renal doppler IMPRESSION: Mildly limited examination as the proximal renal arteries are not visible however the distal renal artery waveforms and velocity are normal and argue against hemodynamically significant upstream stenosis. The kidneys are normal in appearance.
== END 2023-02-17 08:49 | disposition home or self-care (01) ==
LOC: HO.US 08:48
PROVIDERS: PCP Internal Medicine; Visit Provider Internal Medicine
DX: I10 Essential (primary) hypertension (principal)
CPT/HCPCS: 76775; 93975

== ENCOUNTER 2023-03-09 16:36 | Outpatient (AMB) | payer OTHER, SELFPAY ==
[2023-03-09 16:44] VITALS: BP 192/110; PULSE 90; O2SAT 95; BMI 56.9
--- NOTE | 2023-03-09 16:44 | A.OFFPC_ITS ---
Vital Signs 03/09/23 16:44 03/09/23 19:48 Height 5 ft 3 in Weight 321 lb BMI 56.9 BP 192/110 H 190/100 H Blood Pressure Location Lt brachial Lt brachial Position Sitting Sitting Pulse 90 Pulse Source Pulse Oximeter Pulse Oximetry (%) 95 Intake Visit Reasons: BP, Shortness of breath Intake Note: Patient here for a follow up BP, Shortness of breath Stock Clerk Required: No Accompanied by: Self / Same As Patient Allergies No Known Allergies [No Known Allergies*] Allergy (Verified 03/09/23 16:57) Medication List - Last Reconciled 03/09/23 by Yulissa Salgado MD albuterol sulfate 90 mcg/actuation 2 puffs inhalation Q4-6H PRN blood pressure monitor As directed ferrous sulfate 325 mg PO BID 90 days losartan-hydrochlorothiazide 50-12.5 mg 1 tab PO DAILY Tobacco use date assessed: 03/09/23 Dental Screening Dental Screen Date: 03/09/23 Did you have a dental visit in the last 12 months?: No Did you have a dental problem in the last 6 months where you did not have access to dental care?: No Was dental information given to patient?: Patient has dentist HPI HPI Comments History of Present Illness Details This is a 37-year-old female with hypertension, morbid obesity, mild asthma and iron-deficiency anemia that comes today complaining of bilateral leg edema associated with shortness of breath on exertion and dry cough that started about 2 weeks ago. She has increased 10 lb since last seen. Blood pressure elevated and I will increase losartan and change hydrochlorothiazide to spironolactone. She use rescue inhaler once a month. Hemoglobin is low and she is compliant with ferrous sulfate. She is morbidly obese with a BMI of 56.9 and declines weight loss surgery now and was advised to diet and exercise as tolerated. Has a murmur. ON LICENSE OF [facility] Medical History (Updated 03/09/23 @ 19:50 by Yulissa Salgado MD) Depression GERD (gastroesophageal reflux disease) Surgical History No pertinent past surgical history Family History Maternal Grandmother Ovarian cancer Maternal Aunt Ovarian cancer Sister Asthma Sister Family history of thyroid problem Mother No problems noted. Social History Housing: Apartment Alcohol intake: current Alcohol intake frequency: holidays/special occasions only Alcohol type: beer, wine and hard liquor Patient Tobacco Use Status: Former Tobacco user Tobacco use type: Cigarette e-Cigarette/Vaping Use: Never Used Second Hand Smoke Exposure: No service: No Current occupational status: employed Current occupational exposures/hazards: No Cognitive needs: No Hearing needs: No Vision needs: No Questionnaire Thrive Questionnaire Date Thrive assessed: 01/16/23 BRITANY-7 AMB Questionnaire BRITANY-7 Date BRITANY - 7 assessed: 01/16/23 Source: Developed by Drs. Antonio Torres, Fidelia Patel, Alpesh Parker and colleagues, with an educational wilman from [employer]. Review of Systems Const All systems reviewed & are unremarkable except as noted in HPI and below Eyes Reports no additional complaints, Denies change in vision and Denies other visual disturbances Card Denies chest pain at rest, Denies chest pain with activity, Denies edema, Denies irregular heart rhythm, Denies claudication, Denies dyspnea, Denies dyspnea on exertion, Denies orthopnea, Denies paroxysmal nocturnal dyspnea and Denies slow heart rate Resp Denies cough, Denies dyspnea and Denies dyspnea on exertion GI Denies abdominal pain, Denies change in bowel habits, Denies excessive flatus, Denies nausea and Denies vomiting Denies urinary incontinence, Denies urinary hesitancy and Denies urinary urgency Musc Denies abnormal gait, Denies atrophy, Denies deformity and Denies limited range of motion Skin/Breast Denies bleeding lesions, Denies changing lesions and Denies rash Neuro Denies abnormal gait, Denies behavioral changes and Denies lack of coordination Psych Denies behavioral changes Physical exam (Primary Care) Vital Signs: Last Vital Signs Pulse 90 03/09/23 16:44 BP 192/110 H 03/09/23 16:44 Pulse Ox 95 03/09/23 16:44 BMI result Body Mass Index 56.9 Tobacco/Smoking Status: Tobacco use Status Tobacco use date assessed 03/09/23 03/09/23 16:50 Patient Tobacco Use Status Former Tobacco user 03/09/23 16:50 Tobacco use type Cigarette 03/09/23 16:50 e-Cigarette/Vaping Use Never Used 03/09/23 16:50 Thrive Assessment: Date of Thrive Assessment Date Thrive assessed 01/16/23 03/09/23 16:50 Eyes General: appearance normal, both eyes and all related structures Eyelids: Yes eyelids normal Conjunctivae: conjunctivae normal Neck Neck: Yes normal visual inspection and Yes supple Resp Effort & Inspection: normal respiratory effort Auscultation: clear to auscultation bilaterally Cardio Jugular venous distension: no JVD Rate: regular rate Rhythm: regular rhythm Heart sounds: S1 normal heart sound present and S2 normal heart sound present Extrem General: Yes full ROM Assessment and Plan Assessment & Plan (1) Essential hypertension: Code(s): I10 - Essential (primary) hypertension Plan: Increase losartan 100 mg once a day. Discontinue hydrochlorothiazide. Start spironolactone. Blood pressure goal is equal or less than 130/80. Recheck blood pressure in 3 weeks with Nurse navigator. (2) Morbid obesity with BMI of 50.0-59.9, adult: Code(s): E66.01 - Morbid (severe) obesity due to excess calories; Z68.43 - Body mass index [BMI] 50.0-59.9, adult Plan: Start diet and exercise. BMI goal is less than 30. (3) Iron deficiency anemia: Code(s): D50.9 - Iron deficiency anemia, unspecified Plan: Continue ferrous sulfate. (4) Mild persistent asthma: Code(s): J45.30 - Mild persistent asthma, uncomplicated Plan: Use rescue inhaler as needed. Orders: Orders XR chest 2V Today R05.9 - Cough, unspecified CA echo transthorac w con Today R01.1 - Cardiac murmur, unspecified NT-proBNP Today R60.0 - Localized edema Comprehensive Met. Panel Today I10 - Essential (primary) hypertension Medications: New losartan 100 mg PO DAILY 90 days 90 tabs 0RF I10 - Essential (primary) hypertension spironolactone 25 mg PO DAILY 90 days 90 tabs 1RF I10 - Essential (primary) hypertension guaifenesin (Chest Congestion Relief) 200 mg (10 mL) PO Q4H 5 days PRN 300 mL 0RF cough azithromycin Take 2 tabs the first day, then 1 tab for the next 4 days 250 mg PO DAILY 5 days 6 tabs 0RF Discontinued losartan-hydrochlorothiazide 50-12.5 mg Discontinued Reason: Patient Completed Course 1 tab PO DAILY 30 tabs 2RF Coding Level of Care Code Est Pt Level 4 (95484) Diagnoses Essential hypertension I10 Morbid obesity with BMI of 50.0-59.9, adult E66.01; Z68.43 Iron deficiency anemia D50.9 Mild persistent asthma J45.30 Time Spent (min) 24
[2023-03-09 19:48] VITALS: BP 190/100
== END 2023-03-09 17:04 | disposition home or self-care (01) ==
PROVIDERS: PCP Internal Medicine; Visit Provider Internal Medicine
DX: I10 Essential (primary) hypertension (principal); E66.01 Morbid (severe) obesity due to excess calories; Z68.43 Body mass index [BMI] 50.0-59.9, adult; D50.9 Iron deficiency anemia, unspecified; J45.30 Mild persistent asthma, uncomplicated
CPT/HCPCS: 99214

== ENCOUNTER 2023-03-10 08:47 | Outpatient (REF) | payer OTHER, SELFPAY ==
--- NOTE | ~2023-03-10 | XR_ITS ---
EXAMINATION: XR CHEST CLINICAL INFORMATION: Cough COMPARISON: 01/07/2023 TECHNIQUE: 2 views of the chest were obtained. FINDINGS: Unchanged prominent cardiac silhouette. No vascular congestion, consolidations or effusions. Bony structures are intact. XR/XR chest 2V IMPRESSION: No acute cardiopulmonary disease.
[2023-03-10 10:51] LABS: Alanine Aminotransferase 29 U/L (0-31); Albumin Level 3.7 g/dL (3.5-5.0); Alkaline Phosphatase 82 U/L (39-117); Anion Gap 9 (12-20); Aspartate Amino Transferase 31 U/L (5-31); Bilirubin Total 0.2 mg/dL (0.0-1.0); Blood Urea Nitrogen 18 mg/dL (9-16); Calcium 9.8 mg/dL (8.4-10.2); Carbon Dioxide 30 mmol/L (22-29); Chloride 102 mmol/L (96-108); Estimated Glomerular Filt Rate > 60; Glucose Random 97 mg/dL (60-115); Potassium 4.1 mmol/L (3.3-5.1); Sodium 137 mmol/L (135-145); Total Protein 8.1 g/dL (6.5-8.0)
[2023-03-17 16:18] LABS: NT-proBNP 198 pg/mL (<125)
== END 2023-03-10 08:48 | disposition home or self-care (01) ==
LOC: HO.XRAY 08:47
PROVIDERS: PCP Internal Medicine; Visit Provider Internal Medicine
DX: R60.0 Localized edema (principal); R05.9 Cough, unspecified; I10 Essential (primary) hypertension
CPT/HCPCS: 36415; 71046; 80053; 83880

== ENCOUNTER 2023-03-13 13:13 | Outpatient (AMB) | payer OTHER, SELFPAY ==
--- NOTE | 2023-03-13 13:16 | A.OFFVIS_ITS ---
Intake Vital Signs 03/13/23 13:17 Height 5 ft 3 in Weight 320 lb BMI 56.7 BP 130/98 H Blood Pressure Location Lt brachial Position Sitting Pulse 81 Pulse Source Pulse Oximeter Pulse Oximetry (%) 99 Oxygen Delivery Method Room Air Intake Visit Reasons: New Patient Irregular menses Intake Note: Pt c/o: heavy bleeding started 10/14/22 and continued until 02/20/23, states most days were heavy and passed clots denies pain with bleeding. She states her normal cycle is usually at the end of each month for only 3 days. Ssince 02/20/23 she has not had a cycle Allergies No Known Allergies [No Known Allergies*] Allergy (Verified 03/13/23 13:17) Medication List - Last Reconciled 03/13/23 by Caridad Alston CNM albuterol sulfate 90 mcg/actuation 2 puffs inhalation Q4-6H PRN azithromycin 250 mg PO DAILY 5 days blood pressure monitor As directed ferrous sulfate 325 mg PO BID 90 days guaifenesin (Chest Congestion Relief) 200 mg (10 mL) PO Q4H PRN 5 days losartan 100 mg PO DAILY 90 days spironolactone 25 mg PO DAILY 90 days HPI New Patient Irregular menses HPI Details Patient is here is a new patient in this office. She has never been here before. She says she always used to have regular periods and then in September she had a lot of stressful things going on in her life and she started bleeding when her period was due and it just never stopped until right before [facility] it kind a scared her. She has always been overweight and has struggled with it. She has always had some increased facial hair she is sexually active with her fiance who is female so she does not worry about she has never had sex with a man. She has very swollen ankles which she no was because of her weight. She has been having some high blood pressure which she knows is because of her weight she just met with Dr. Ching for the 1st time recently and has had medications ordered but she has not even pick them up yet from the pharmacy. 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 She knows that working security shift manager contributes to her being overweight as well because of when she eats and in the middle of the night she is hungry. She is the sole support for her family which includes her firosanna and her fikeith's 5-year-old child. She is concerned about her health and wants to get better she does not think she has any elevated blood sugar. Her last Pap smear she thinks was many years ago at [facility] or some place like it in the middle of [place] that had volunteers for people who do not have insurance. FORMERLY [facility] Medical History Depression GERD (gastroesophageal reflux disease) Surgical History No pertinent past surgical history Family History Maternal Grandmother Ovarian cancer Maternal Aunt Ovarian cancer Sister Asthma Sister Family history of thyroid problem Mother No problems noted. Social History Housing: Apartment Alcohol intake: current Alcohol intake frequency: holidays/special occasions only Alcohol type: beer, wine and hard liquor Patient Tobacco Use Status: Former Tobacco user Tobacco use type: Cigarette e-Cigarette/Vaping Use: Never Used Second Hand Smoke Exposure: No service: No Current occupational status: employed Current occupational exposures/hazards: No Cognitive needs: No Hearing needs: No Vision needs: No Female Reproductive History Menstrual Date of last menstrual period: 10/14/22 Physical Exam Vital Signs: Last Vital Signs Pulse 81 03/13/23 13:17 BP 130/98 H 03/13/23 13:17 Pulse Ox 99 03/13/23 13:17 Oxygen Delivery Method Room Air 03/13/23 13:17 BMI result Body Mass Index 56.7 Const Other: Morbid obesity pedal edema increased facial hair noted. Nutritional Appearance: obese morbidly obese Other: Exam somewhat limited by adipose tissue. Patient does have sub epithelial collections of secretions that appeared to be lipid in nature in that they are clerk checker in color underneath the skin. She states she has had them for many years and she thinks that they are like plugged mucus glands too. Speculum Exam - Vagina: normal appearance of the vagina and other Speculum Exam - Cervix: normal appearance of the cervix and Other cervical findings present (limited views) Bimanual exam- vagina & uterus: other (uterus difficult to assess 2' habitus) Bimanual Exam- Adnexa, other: Other (palpation of adnexae limited 2' habitus) Results Reviewed Results Reviewed: Name: Mervat Plummer Age/Sex: 37/F : 1985 Unit#: [id number] Attend Dr: Yulissa Murray MD Re01/31/23 Status: DEP [facility] Disch: SPEC : [id number] LARA: 01/31/23 STATUS: COMP REQ : [id number] RECD: 01/31/[address]: Yulissa Murray MD COMP: 01/31/23 ENTERED: 01/31/[address] [facility] [address]: ORDERED: CBC Auto Diff Test Result Flag Reference WBC 10.1 4.8-10.8 X10*3/uL RBC 3.76 L 4.20-5.50 X10*6/uL HGB 8.5 L 12.0-16.0 g/dl HCT 29.2 L 37.0-47.0 % MCV 77.7 L 80.0-98.0 fL MCH 22.6 L 27.0-33.0 pg MCHC 29.1 L 31.0-35.0 g/dl RDW 16.6 H 11.0-16.0 % PLT 370 160-400 X10*3/uL MPV 10.2 9.4-12.3 fL Neut Pct Auto 61.2 45-73 % ImGran Pct Auto 0.5 H 0.0-0.4 % Lymp Pct Auto 30.2 20-40 % Halifax Pct Auto 6.6 2-11 % Eos Pct Auto 1.1 0-4 % Baso Pct Auto 0.4 0-2 % NRBC Pct Auto 0.0 0.0-0.2 /100WBC ANC Neut Abs # 6.2 2.0-8.3 x10*3/uL ImGran Abs Auto 0.05 H 0.00-0.03 X10*3/uL Lymph Abs Auto 3.1 1.2-4.9 X10*3/uL Halifax Abs Auto 0.7 0.1-1.2 X10*3/uL Eos Abs Auto 0.1 0.0-0.4 X10*3/uL Baso Abs Auto 0.0 0.0-0.2 X10*3/uL NRBC Abs Auto 0.000 0.0-0.012 X10*3/uL Assessment & Plan Assessment & Plan (1) Iron deficiency anemia: Code(s): D50.9 - Iron deficiency anemia, unspecified (2) Leg edema: Code(s): R60.0 - Localized edema (3) Essential hypertension: Code(s): I10 - Essential (primary) hypertension (4) Morbid obesity with BMI of 50.0-59.9, adult: Code(s): E66.01 - Morbid (severe) obesity due to excess calories; Z68.43 - Body mass index [BMI] 50.0-59.9, adult (5) Abnormal uterine bleeding (AUB): Code(s): N93.9 - Abnormal uterine and vaginal bleeding, unspecified (6) Cervical cancer screening: Code(s): Z12.4 - Encounter for screening for malignant neoplasm of cervix (7) Elevated TSH: Code(s): R79.89 - Other specified abnormal findings of blood chemistry Plan Discussed the interactions of hormones and obesity, Discussed the common issue of irregular menses related to elevated hormonal levels and over time these can contribute to heavy menses and in her case probably more recently the several month. Of continued bleeding which def initely contributed to her anemia she is on iron at this time. She has been referred to the weight management program she is getting worked up for sleep apnea she is getting lots of other body systems evaluated including cardiac. She is interested in losing weight she wants to get healthier she wants to take care of herself she has always been taking care of other people. 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 Discussed that as part of this workup initially will be doing an ultrasound and then if possible an endometrial biopsy to assess for abnormal cells if there are no abnormal cells I would recommend a Mirena to help control buildup of the endometrial lining if there are any abnormal cells or any other abnormal findings or if I am unable to do the endometrial biopsy I will have her see Dr. Prince for management. Discussed assessment of the lipid like bumps on her labia minora which are probably related in some way to the obesity and buildup of secretions in her glands however if there is more concern after the more pressing issues get taken care of she can also be referred for further evaluation of these as well. Next step is a pelvic ultrasound and followed by an endometrial biopsy. Patient agreed to have a pelvic exam with Pap and cultures done today her discharge appeared within normal limits her cervix was nulliparous extremely difficult to visualize but it was visualized and Pap was done. Unable to palpate uterus and adnexa and other structure secondary to adipose tissue. Orders: Orders CT NG by PCR Today Z01.419 - Encounter for gynecological examination (general) (routine) without abnormal findings Bacterial Vaginosis Panel Today Z01.419 - Encounter for gynecological examination (general) (routine) without abnormal findings Pap Smear Today Z01.419 - Encounter for gynecological examination (general) (routine) without abnormal findings US pelvic and transvaginal Today D50.9 - Iron deficiency anemia, unspecified, E66.01 - Morbid (severe) obesity due to excess calories, I10 - Essential (primary) hypertension, N93.9 - Abnormal uterine and vaginal bleeding, unspecified, Z12.4 - Encounter for screening for malignant neoplasm of cervix, Z68.43 - Body mass index [BMI] 50.0-59.9, adult Coding Level of Care Code New Pt Level 4 (15821) Diagnoses Iron deficiency anemia D50.9 Leg edema R60.0 Essential hypertension I10 Morbid obesity with BMI of 50.0-59.9, adult E66.01; Z68.43 Abnormal uterine bleeding (AUB) N93.9 Cervical cancer screening Z12.4 Elevated TSH R79.89
[2023-03-13 13:17] VITALS: BP 130/98; PULSE 81; O2SAT 99; BMI 56.7
== END 2023-03-13 14:46 | disposition home or self-care (01) ==
LOC: HO.HWS 13:13
PROVIDERS: PCP Internal Medicine; Visit Provider Advanced Practice Midwife
DX: D50.9 Iron deficiency anemia, unspecified (principal); R60.0 Localized edema; I10 Essential (primary) hypertension; E66.01 Morbid (severe) obesity due to excess calories; Z68.43 Body mass index [BMI] 50.0-59.9, adult; N93.9 Abnormal uterine and vaginal bleeding, unspecified; Z12.4 Encounter for screening for malignant neoplasm of cervix; R79.89 Other specified abnormal findings of blood chemistry
CPT/HCPCS: 99204

== ENCOUNTER 2023-03-13 13:13 | Outpatient (REF) | payer OTHER, SELFPAY ==
[2023-03-13 17:46] LABS: CT PCR NOT DETECTED (Not Detect.); NG PCR NOT DETECTED (Not Detect.)
[2023-03-14 12:39] LABS: BV Int Neg Control Negative (Negative); BV Int Pos Control Positive (Positive)
[2023-03-15 21:20] LABS: HPV mRNA E6/E7 rflx Not Detected (Not Detected)
== END 2023-03-13 13:14 | disposition home or self-care (01) ==
LOC: HO.LNP 13:13
PROVIDERS: PCP Internal Medicine; Visit Provider Advanced Practice Midwife
DX: Z01.419 Encounter for gynecological examination (general) (routine) without abnormal findings (principal); Z11.51 Encounter for screening for human papillomavirus (HPV); D50.9 Iron deficiency anemia, unspecified; Z20.2 Contact with and (suspected) exposure to infections with a predominantly sexual mode of transmission; N93.9 Abnormal uterine and vaginal bleeding, unspecified
CPT/HCPCS: 0353U; 87480; 87510; 87624; 87660; 88142

== ENCOUNTER → 2023-04-03 10:51 | Outpatient (REF) | payer OTHER, SELFPAY | LOC: HO.SL 10:51 | PROVIDERS: PCP Internal Medicine; Visit Provider Internal Medicine | DX: G47.33 Obstructive sleep apnea (adult) (pediatric) (principal); R40.0 Somnolence | CPT/HCPCS: 95806 ==

== ENCOUNTER → 2023-04-03 11:03 | Outpatient (BNV) | payer OTHER, SELFPAY | PROVIDERS: PCP Internal Medicine; Visit Provider Internal Medicine | DX: G47.33 Obstructive sleep apnea (adult) (pediatric) (principal) | CPT/HCPCS: 95806 ==

== ENCOUNTER → 2023-04-25 08:51 | Outpatient (REF) | payer OTHER, SELFPAY ==
--- NOTE | 2023-04-25 08:53 | CA_ITS ---
Transthoracic Echocardiogram Patient (Last, First, Middle): Mervat Plummer, Gender: Female Date of : 1985 Age: 37 Procedure Date: 04/25/2023 Procedure Type: Transthoracic Echocardiogram Location: OP Height: 157.48 cm Weight: 142.88 kg BSA: 2.32 m2 Heart Rate: 81 bpm BP: 122 / 75 mmHg Maitre D: JOAN Referring MD: Yulissa Salgado MD Symptoms: R01.1 - Cardiac murmur, unspecified Study Quality: Fair w/Contrast ECG Rhythm: Sinus Conclusions: - The left ventricular systolic function is normal. The calculated ejection fraction is 60% by biplane method. - There is moderately increased left ventricular wall thickness. - No obvious valvular pathology seen on this study. Findings Procedure Information Contrast agent, definity, is being given per protocol without apparent complications. Left Ventricle Normal left ventricular cavity size. There is moderately increased left ventricular wall thickness. The left ventricular systolic function is normal. The calculated ejection fraction is 60% by biplane method. There is no evidence of regional wall motion abnormalities. Evidence suggests grade I (mild) diastolic dysfunction. Right Ventricle Normal right ventricular cavity size. There is low normal right ventricular systolic function. Atria Both atria are normal in size. Aortic Valve The aortic valve was not well visualized. There is no aortic valve stenosis. There is no aortic valve regurgitation. Mitral Valve The mitral valve appears normal. There is no mitral valve regurgitation. There is no mitral valve stenosis. Pulmonic Valve The pulmonic valve is likely normal. Tricuspid Valve There is trace tricuspid valve regurgitation. There is no evidence of pulmonary hypertension. Great Vessels The asc aorta is normal in size. Venous The inferior vena cava is normal in size and collapses greater than 50% with inspiration. Pericardium/Pleural There is no evidence of pericardial effusion. Prior Study Comparison No prior study available for comparison. Recommendations, Care & Conclusions No obvious valvular pathology seen on this study. Measurements 2D Linear Measurements IVSd: 1.87 0.6-0.9/0.6-1.0 cm LVIDd: 4.58 3.9-5.3/4.2-5.9 cm LVIDd Index: 1.97 2.4-3.2/2.2-3.1 cm/m2 LVIDs: 3.15 2.0-3.6 cm LVPWd: 1.55 0.7-1.1 cm LA Diam: 4.20 2.7-3.8/3.0-4.0 cm LAIDs Index: 1.81 1.5-2.3 cm/m2 LV Mass: 432.57 67-162/88-224 g LV Mass Index: 186.45 43-95/49-115 g/m2 LVOT Diam: 1.90 3.0+(-)1.3 cm 2D Systolic Function EF 4C: 61.30 >55% EF 2C: 58.20 >55% EF BiP: 59.90 >55% Mitral Valve MV Pk E: 0.98 MV PK A: 0.97 MV Decel Time: 180.00 E/A: 1.00 E'Lateral: 7.62 E'Medial: 5.98 E/E' Med: 16.40 E/E' Lat: 12.90 PHT: 53.00 MVA PHT: 4.15 Decel Walton: 5.46 Aortic Valve AoV Pk Raymundo: 1.82 AoV Mn Raymundo: 1.39 AoV VTI: 0.35 AoV Pk Grad: 13.00 Aov Mn Grad: 8.00 SRIDEVI Cont.VTI: 1.95 LVOT LVOT Pk Raymundo: 1.19 LVOT Mn Raymundo: 0.86 LVOT VTI: 0.24 LVOT Pk Grad: 6.00 LVOT Mn Grad: 3.00 LVOT Diam: 1.90 LVOT Area: 2.84 Diastolic Function MV Pk E: 0.98 MV Pk A: 0.97 E/A: 1.00 E'Medial: 5.98 E/E' Med: 16.40 E' Laterial: 7.62 E/E' Lat: 12.90 Right Ventricle TAPSE (mm): 21.90 TVS' Raymundo: 9.90 Tricuspid Valve TR Pk Raymundo: 1.83 TR Pk Grad: 13.00 RA Press: 3.00 RVSP: 16.00 Great Vessels Aorta Sinus of Valsalva: 2.80 2.0-3.5 cm Ao Asc: 3.00 2.1-3.4 cm Pulmonary Valve PV Pk Raymundo: 1.40 Peak PV Grad: 8.00 Updated in Other Vendor System with Status of Final Matthew Mcgregor MD electronically signed on 04/26/2023 6:50:02 AM with status of Final
== END ==
LOC: HO.CARD 08:51
PROVIDERS: PCP Internal Medicine; Visit Provider Internal Medicine
DX: R01.1 Cardiac murmur, unspecified (principal); R60.0 Localized edema
CPT/HCPCS: 93306; Q9957

== ENCOUNTER → 2023-04-25 08:53 | Outpatient (BNV) | payer OTHER, SELFPAY | PROVIDERS: PCP Internal Medicine; Visit Provider Internal Medicine | DX: R01.1 Cardiac murmur, unspecified (principal) | CPT/HCPCS: 93306 ==

== ENCOUNTER 2023-12-04 10:39 | Outpatient (AMB) | payer OTHER, SELFPAY ==
--- NOTE | 2023-12-04 10:41 | A.OFFPC_ITS ---
Vital Signs 12/04/23 10:44 12/04/23 12:18 Height 5 ft 3 in Weight 335 lb BMI 59.3 BP 242/130 H 200/100 H Blood Pressure Location Lt brachial Lt brachial Position Sitting Sitting Intake Visit Reasons: swollen legs and blood pressure Intake Note: Patient here c/o bilateral leg pain and swelling, elevated bp Goldbeater Required: No Accompanied by: Self / Same As Patient Allergies No Known Allergies [No Known Allergies*] Allergy (Verified 12/04/23 10:53) Medication List - Last Reconciled 12/04/23 by Yulissa Salgado MD albuterol sulfate 90 mcg/actuation 2 puffs inhalation Q4-6H PRN blood pressure monitor As directed ferrous sulfate 325 mg PO BID 90 days losartan 100 mg PO DAILY 90 days spironolactone 25 mg PO DAILY 90 days Tobacco use date assessed: 03/09/23 Dental Screening Dental Screen Date: 12/04/23 Did you have a dental visit in the last 12 months?: No Did you have a dental problem in the last 6 months where you did not have access to dental care?: No Was dental information given to patient?: Patient has dentist HPI HPI Comments History of Present Illness Details This is a 38-year-old female with hypertension and morbid obesity that comes today for follow-up on her blood pressure. She has stopped taking her medications for over a month. Denies any chest pain. Complains of occasional shortness of breath. She is morbidly obese and would like to be referred to weight management again in [place]. [facility] Medical History Depression GERD (gastroesophageal reflux disease) Surgical History No pertinent past surgical history Family History Maternal Grandmother Ovarian cancer Maternal Aunt Ovarian cancer Sister Asthma Sister Family history of thyroid problem Mother No problems noted. Social History Housing: Apartment Alcohol intake: current Alcohol intake frequency: holidays/special occasions only Alcohol type: beer, wine and hard liquor Patient Tobacco Use Status: Former Tobacco user Tobacco use type: Cigarette e-Cigarette/Vaping Use: Never Used Second Hand Smoke Exposure: No service: No Current occupational status: employed Current occupational exposures/hazards: No Cognitive needs: No Hearing needs: No Vision needs: No Questionnaire PHQ-9 Over the last 2 weeks, how often have you been bothered by any of the following problems? 1. Little interest or pleasure in doing things: not at all 2. Feeling down, depressed, or hopeless: several days 3. Trouble falling or staying asleep, or sleeping too much: not at all 4. Feeling tired or having little energy: not at all 5. Poor appetite or overeating: several days 6. Feeling bad about yourself - or that you are a failure or have let yourself or your family down: several days 7. Trouble concentrating on things, such as reading the newspaper or watching television: not at all 8. Moving or speaking so slowly that other people could have noticed. Or the opposite - being so fidgety or restless that you have been moving around a lot more than usual: not at all 9. Thoughts that you would be better off or of hurting yourself in some way: not at all Total score: 3 Depression Screening Interpretation: Positive Depression Screening Follow-up: Existing condition and Follow-up Visit Requested Depression Screening Done: Yes 79997 - PHQ-9 Billing: Yes Source: Developed by Drs. Antonio Torres, Fidelia Patel, Alpesh Parker and colleagues, with an educational wilman from [employer]. Thrive Questionnaire Date Thrive assessed: 12/04/23 I am a: Patient What is your living situation today?: I have a steady place to live Within the past 12 months, did the food you bought not last and you didn't have the money to get more?: Never true Within the past 12 months, did you worry whether your food would run out before you got money to buy more?: Never true Do you have trouble paying for medicines?: No Do you have trouble getting transportation to medical appointments?: No Do you have trouble paying your heating and electricity bill?: No Do you have trouble taking care of your child, family member or friend?: No Do you have trouble with day-to-day activities such as bathing, preparing meals, shopping, managing finances, etc.?: No Are you currently unemployed and looking for a job?: No Are you interested in more education?: No Please select the resources that you would like help with: None Currently or been in a relationship where the following occur: No concerns reported THRIVE Score: 0 AUDIT C Alcohol Use Questionnaire (AUDIT-C) 1. How often do you have a drink containing alcohol?: Monthly or less 2. How many drinks containing alcohol do you have on a typical day when you are drinking?: 1 or 2 3. How often do you have six or more drinks on one occasion?: Never Total Score: 1 Score Reviewed/Action Taken: No BRITANY-7 AMB Questionnaire BRITANY-7 Date BRITANY - 7 assessed: 12/04/23 Feeling nervous, anxious, or on edge: 1 = Several days Not being able to stop or control worryin = Not at all Worrying too much about different things: 1 = Several days Trouble relaxin = Not at all Being so restless that it is hard to sit still: 0 = Not at all Becoming easily annoyed or irritable: 0 = Not at all Feeling afraid as if something awful might happen: 0 = Not at all Total BRITANY-7 score (0-4 normal; 5-9 mild; 10-14 moderate; 15-21 severe): 2 Source: Developed by Drs. Antonio Torres, Fidelia Patel, Alpesh Parker and colleagues, with an educational wilman from [employer]. BRITANY-7 Assessment Billing BRITANY-7 Assessment Tool: BRITANY-7 Assessment 62536 Review of Systems Const All systems reviewed & are unremarkable except as noted in HPI and below Card Denies chest pain at rest, Denies chest pain with activity, Denies edema, Denies irregular heart rhythm, Denies claudication, Denies dyspnea, Denies dyspnea on exertion, Denies orthopnea, Denies paroxysmal nocturnal dyspnea and Denies slow heart rate Resp Denies cough, Denies dyspnea and Denies dyspnea on exertion GI Denies abdominal pain, Denies change in bowel habits, Denies excessive flatus, Denies nausea and Denies vomiting Physical exam (Primary Care) Vital Signs: Last Vital Signs BP 242/130 H 12/04/23 10:44 BMI result Body Mass Index 59.3 BMI Assessment/Plan discussion: High BMI High, discussed plan: lifestyle, weight reduction, dietary and physical activity Tobacco/Smoking Status: Tobacco use Status Tobacco use date assessed 03/09/23 12/04/23 10:43 Patient Tobacco Use Status Former Tobacco user 12/04/23 10:43 Tobacco use type Cigarette 12/04/23 10:43 e-Cigarette/Vaping Use Never Used 12/04/23 10:43 PHQ-9: PHQ-9 Score PHQ-9: Total score 3 12/04/23 10:56 Depression Screening Interpretation: Positive Depression Screening Follow-up: Existing condition and Follow-up Visit Requested Thrive Assessment: Date of Thrive Assessment Date Thrive assessed 12/04/23 12/04/23 10:43 Currently or been in a relationship where the following occur: No concerns reported Resp Effort & Inspection: normal respiratory effort Auscultation: clear to auscultation bilaterally Cardio Jugular venous distension: no JVD Rate: regular rate Rhythm: regular rhythm Heart sounds: S1 normal heart sound present and S2 normal heart sound present Neuro General: no focal motor deficits Extrem General: Yes full ROM Office Procedures Flu Questionnaire Does the patient have a severe egg allergy?: No Immunizations Fluarix Triv [id number] (PF) 45 mcg (15 mcg x 3)/0.5 mL IM syringe Performing Provider: Yulissa Salgado MD Performing Location[facility] Documented (not given) by: HALIMA Sheriff on 12/04/23 10:49 Reason Not Given: Patient Refused Coding Level of Care Code Est Pt Level 3 (46328) Complex EM visit Add On G2211 Diagnoses Morbid obesity with BMI of 50.0-59.9, adult E66.01; Z68.43 Essential hypertension I10 Additional Codes BRITANY-7 Assessment Billing - BRITANY-7 Assessment Tool: BRITANY-7 Assessment 71724 ([id number]) Time Spent (min) 21 Assessment & Plan Assessment & Plan (1) Morbid obesity with BMI of 50.0-59.9, adult: Code(s): E66.01 - Morbid (severe) obesity due to excess calories; Z68.43 - Body mass index [BMI] 50.0-59.9, adult Category: Medical Plan: Referred to weight management. BMI goal is less than 30. (2) Essential hypertension: Code(s): I10 - Essential (primary) hypertension Category: Medical Plan: Restart losartan and spironolactone. Blood pressure goal is equal or less than 130/80. Recheck blood pressure with nurse navigator in 3 weeks. Orders: Orders Influenza [id number] Immunization Today Z23 - Encounter for immunization Complete Blood Count Auto Diff Today D64.9 - Anemia, unspecified Comprehensive [place]. Panel Fast Today E66.01 - Morbid (severe) obesity due to excess calories, Z68.43 - Body mass index [BMI] 50.0-59.9, adult Lipid Panel Today E78.5 - Hyperlipidemia, unspecified IRON PROFILE Today D64.9 - Anemia, unspecified Vitamin D 25-OH Total Today E55.9 - Vitamin D deficiency, unspecified Vitamin B12 and Folate Today E53.8 - Deficiency of other specified B group vitamins Referrals Medical Weight Management Referral E66.01 - Morbid (severe) obesity due to excess calories, Z68.43 - Body mass index [BMI] 50.0-59.9, adult Medications: Refilled ferrous sulfate 325 mg PO BID 180 tabs 1RF 90 days D50.9 - Iron deficiency anemia, unspecified spironolactone 25 mg PO DAILY 90 tabs 1RF 90 days I10 - Essential (primary) hypertension albuterol sulfate 90 mcg/actuation 2 puffs inhalation Q4-6H PRN 6.7 grams 0RF shortness of breath or wheezing losartan 100 mg PO DAILY 90 tabs 0RF 90 days I10 - Essential (primary) hypertension
[2023-12-04 10:44] VITALS: BP 242/130; BMI 59.3
[2023-12-04 12:18] VITALS: BP 200/100
== END 2023-12-04 11:06 | disposition home or self-care (01) ==
PROVIDERS: PCP Internal Medicine; Visit Provider Internal Medicine
DX: E66.01 Morbid (severe) obesity due to excess calories (principal); Z68.43 Body mass index [BMI] 50.0-59.9, adult; I10 Essential (primary) hypertension; Z23 Encounter for immunization

== ENCOUNTER → 2023-12-04 10:39 | Outpatient (BNVA) | payer OTHER, SELFPAY | PROVIDERS: PCP Internal Medicine; Visit Provider Internal Medicine | DX: E66.01 Morbid (severe) obesity due to excess calories (principal); Z68.43 Body mass index [BMI] 50.0-59.9, adult; I10 Essential (primary) hypertension; Z28.21 Immunization not carried out because of patient refusal | CPT/HCPCS: 90471; 96127 ==

== ENCOUNTER 2023-12-05 08:40 | Outpatient (REF) | payer OTHER, SELFPAY ==
[2023-12-05 08:51] LABS: MANUAL DIFF FLAG NO
[2023-12-05 09:13] LABS: Basophils Percent Auto 0.3 % (0-2); Eosinophils Absolute Auto 0.1 X10*3/uL (0.0-0.4); Eosinophils Percent Auto 0.9 % (0-4); Hematocrit 34.7 % (37.0-47.0); Hemoglobin 9.9 g/dl (12.0-16.0); Imm Gran Abs Auto 0.06 X10*3/uL (0.00-0.03); Imm Gran Pct Auto 0.5 % (0.0-0.4); Lymphocytes Absolute Auto 2.3 X10*3/uL (1.2-4.9); Lymphocytes Percent Auto 19.9 % (20-40); Mean Corpuscular HGB Conc 28.5 g/dl (31.0-35.0); Mean Corpuscular Volume 76.9 fL (80.0-98.0); Mean Platelet Volume 9.9 fL (9.4-12.3); Monocytes Absolute Auto 0.8 X10*3/uL (0.1-1.2); Monocytes Percent Auto 6.7 % (2-11); Neutrophils Absolute Auto 8.3 x10*3/uL (2.0-8.3); Neutrophils Percent Auto 71.7 % (45-73); Platelet Count 309 X10*3/uL (160-400); Red Blood Count 4.51 X10*6/uL (4.20-5.50); Red Cell Distribution Width 20.4 % (11.0-16.0); White Blood Count 11.6 X10*3/uL (4.8-10.8)
[2023-12-05 09:49] LABS: Alanine Aminotransferase 25 U/L (0-31); Albumin Level 3.7 g/dL (3.5-5.0); Alkaline Phosphatase 88 U/L (39-117); Anion Gap 11 (12-20); Aspartate Amino Transferase 30 U/L (5-31); Bilirubin Total 0.7 mg/dL (0.0-1.0); Blood Urea Nitrogen 17 mg/dL (9-16); Calcium 8.7 mg/dL (8.4-10.2); Carbon Dioxide 29 mmol/L (22-29); Chloride 105 mmol/L (96-108); Cholesterol 132 mg/dL (<200); Estimated Glomerular Filt Rate 58; Glucose Fasting 108 mg/dL (60-99); HDL Cholesterol 28 mg/dL (>40); Iron 30 mcg/dL (30-160); LDL Cholesterol Calculated 79 mg/dL (<100); Percent Iron Saturation 9 % (15-50); Potassium 4.3 mmol/L (3.3-5.1); Sodium 141 mmol/L (135-145); Total Iron Binding Capacity 347 mcg/dL (228-428); Total Protein 7.6 g/dL (6.5-8.0); Triglycerides 127 mg/dL (<150); Unsaturated Iron Binding 317 ug/dL
[2023-12-05 10:05] LABS: Vitamin D 25-OH Total 11.1 ng/mL (>30)
[2023-12-05 10:16] LABS: Folate 13.1 ng/mL (> or = 4.0); Vitamin B12 433 pg/mL (200-900)
== END 2023-12-05 08:41 | disposition home or self-care (01) ==
LOC: HO.LAB 08:40
PROVIDERS: PCP Internal Medicine; Visit Provider Internal Medicine
DX: D64.9 Anemia, unspecified (principal); E66.01 Morbid (severe) obesity due to excess calories; Z68.43 Body mass index [BMI] 50.0-59.9, adult; E78.5 Hyperlipidemia, unspecified; E55.9 Vitamin D deficiency, unspecified; E53.8 Deficiency of other specified B group vitamins
CPT/HCPCS: 36415; 80053; 80061; 82306; 82607; 82746; 83540; 85025

== ENCOUNTER → 2023-12-28 09:05 | Outpatient (BNVA) | payer OTHER, SELFPAY | PROVIDERS: PCP Internal Medicine ==

== ENCOUNTER 2024-06-04 08:03 | Outpatient (AMB) | payer OTHER, SELFPAY ==
--- NOTE | 2024-06-04 08:11 | MHC.PC.OV ---
Vital Signs 06/04/24 08:14 Height 5 ft 3 in Weight 290 lb BMI 51.4 BP 142/100 H Blood Pressure Location Lt brachial Position Sitting Intake Visit Reasons: discuss medication Loss Prevention And Safety Manager Required: No Accompanied by: Child Allergies No Known Allergies [No Known Allergies*] Allergy (Verified 06/04/24 08:15) Medication List - Last Reconciled 06/04/24 by Yulissa Salgado MD albuterol sulfate 90 mcg/actuation 2 puffs inhalation Q4-6H PRN blood pressure monitor As directed cholecalciferol (vitamin D3) 50 mcg PO DAILY 90 days ferrous sulfate 325 mg PO BID 90 days losartan 100 mg PO DAILY 90 days spironolactone 25 mg PO DAILY 90 days Tobacco use date assessed: 06/04/24 Dental Screening Dental Screen Date: 06/04/24 Did you have a dental visit in the last 12 months?: No Did you have a dental problem in the last 6 months where you did not have access to dental care?: No Was dental information given to patient?: Patient has dentist HPI HPI Comments History of Present Illness Details The patient is a 38-year-old female presenting with increased urinary frequency, dry mouth, and blurry vision as well as unintentional weight loss. Three weeks ago, she began experiencing frequent urination about every 30 minutes, interfering with her work and daily activities. She reports significant thirst and dry lips without prior symptoms. Additionally, she experiences new-onset blurry vision when looking into the distance. 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 I will start her on metformin. Side effects were advised such as abdominal discomfort and diarrhea. She will check her fasting blood glucose daily. Will be referred to Ophthalmology. Antibodies will be order to rule out diabetes mellitus type 1. She also has iron-deficiency anemia and hemoglobin will be ordered. Previously considered for a weight management surgery, she did not proceed due to insurance issues but I will refer her again due to her BMI of 51.4 indicating morbid obesity. Blood pressure elevated today and she did took her losartan. Blood pressure will be recheck in 3 weeks by nurse navigator. Current medications include losartan, furosemide, spironolactone, vitamin D3, and vitamin C. Symptoms might indicate an exacerbation of her prediabetes, warranting further diagnostic evaluation. [facility] Medical History (Updated 06/04/24 @ 09:32 by Yulissa Salgado MD) Depression GERD (gastroesophageal reflux disease) Surgical History No pertinent past surgical history Family History Maternal Grandmother Ovarian cancer Maternal Aunt Ovarian cancer Sister Asthma Sister Family history of thyroid problem Mother No problems noted. Social History Housing: Apartment Alcohol intake: current Alcohol intake frequency: holidays/special occasions only Alcohol type: beer, wine and hard liquor Patient Tobacco Use Status: Former Tobacco user Tobacco use type: Cigarette e-Cigarette/Vaping Use: Never Used Second Hand Smoke Exposure: No service: No Current occupational status: employed Current occupational exposures/hazards: No Cognitive needs: No Hearing needs: No Vision needs: No Questionnaire PHQ-9 Over the last 2 weeks, how often have you been bothered by any of the following problems? 1. Little interest or pleasure in doing things: not at all 2. Feeling down, depressed, or hopeless: not at all 3. Trouble falling or staying asleep, or sleeping too much: not at all 4. Feeling tired or having little energy: not at all 5. Poor appetite or overeating: not at all 6. Feeling bad about yourself - or that you are a failure or have let yourself or your family down: not at all 7. Trouble concentrating on things, such as reading the newspaper or watching television: not at all 8. Moving or speaking so slowly that other people could have noticed. Or the opposite - being so fidgety or restless that you have been moving around a lot more than usual: not at all 9. Thoughts that you would be better off or of hurting yourself in some way: not at all Total score: 0 Depression Screening Interpretation: Negative Depression Screening Done: Yes 29131 - PHQ-9 Billing: Yes Source: Developed by Drs. Antonio Torres, Fidelia Patel, Alpesh Parker and colleagues, with an educational wilman from [employer]. Thrive Questionnaire Date Thrive assessed: 06/04/24 I am a: Patient What is your living situation today?: I have a steady place to live Within the past 12 months, did the food you bought not last and you didn't have the money to get more?: Never true Within the past 12 months, did you worry whether your food would run out before you got money to buy more?: Never true Do you have trouble paying for medicines?: No Do you have trouble getting transportation to medical appointments?: No Do you have trouble paying your heating and electricity bill?: No Do you have trouble taking care of your child, family member or friend?: No Do you have trouble with day-to-day activities such as bathing, preparing meals, shopping, managing finances, etc.?: No Are you currently unemployed and looking for a job?: No Are you interested in more education?: No Please select the resources that you would like help with: None Currently or been in a relationship where the following occur: No concerns reported THRIVE Score: 0 AUDIT C Alcohol Use Questionnaire (AUDIT-C) 1. How often do you have a drink containing alcohol?: Monthly or less 2. How many drinks containing alcohol do you have on a typical day when you are drinking?: 1 or 2 3. How often do you have six or more drinks on one occasion?: Never Total Score: 1 BRITANY-7 AMB Questionnaire BRITANY-7 Date BRITANY - 7 assessed: 06/04/24 Feeling nervous, anxious, or on edge: 0 = Not at all Not being able to stop or control worryin = Not at all Worrying too much about different things: 0 = Not at all Trouble relaxin = Not at all Being so restless that it is hard to sit still: 0 = Not at all Becoming easily annoyed or irritable: 0 = Not at all Feeling afraid as if something awful might happen: 0 = Not at all Total BRITANY-7 score (0-4 normal; 5-9 mild; 10-14 moderate; 15-21 severe): 0 Source: Developed by Drs. Antonio Torres, Fidelia Patel, Alpesh Parker and colleagues, with an educational wilman from [employer]. BRITANY-7 Assessment Billing BRITANY-7 Assessment Tool: BRITANY-7 Assessment 67103 Review of Systems Const All systems reviewed & are unremarkable except as noted in HPI and below Card Denies chest pain at rest, Denies chest pain with activity, Denies edema, Denies irregular heart rhythm, Denies claudication, Denies dyspnea, Denies dyspnea on exertion, Denies orthopnea, Denies paroxysmal nocturnal dyspnea and Denies slow heart rate Resp Denies cough, Denies dyspnea and Denies dyspnea on exertion Neuro Denies lack of coordination Endo Reports polyphagia, Reports polydipsia and Reports polyuria Physical exam (Primary Care) Vital Signs: Last Vital Signs BP 142/100 H 06/04/24 08:14 BMI result Body Mass Index 51.4 BMI Assessment/Plan discussion: High BMI High, discussed plan: lifestyle, weight reduction, dietary and physical activity Tobacco/Smoking Status: Tobacco use Status Tobacco use date assessed 06/04/24 06/04/24 08:17 Patient Tobacco Use Status Former Tobacco user 06/04/24 08:13 Tobacco use type Cigarette 06/04/24 08:13 e-Cigarette/Vaping Use Never Used 06/04/24 08:13 PHQ-9: PHQ-9 Score PHQ-9: Total score 0 06/04/24 08:38 Depression Screening Interpretation: Negative Thrive Assessment: Date of Thrive Assessment Date Thrive assessed 06/04/24 06/04/24 08:13 Currently or been in a relationship where the following occur: No concerns reported Resp Effort & Inspection: normal respiratory effort Auscultation: clear to auscultation bilaterally Cardio Jugular venous distension: no JVD Rate: regular rate Rhythm: regular rhythm Heart sounds: S1 normal heart sound present and S2 normal heart sound present Extrem General: Yes full ROM Results AMB Urinalysis, Automated UA Leukoctes 0 Monse/uL Last Edit by HALIMA Sheriff on 06/04/24 08:39 UA Nitrite Negative Last Edit by HALIMA Sheriff on 06/04/24 08:39 UA Urobilinogen 0 mg/dL Last Edit by HALIMA Sheriff on 06/04/24 08:39 UA Protein 0 mg/dL Last Edit by HALIMA Sheriff on 06/04/24 08:39 UA pH 6.0 Last Edit by HALIMA Sheriff on 06/04/24 08:39 UA Blood 1 Jovany/uL Last Edit by HALIMA Sheriff on 06/04/24 08:39 UA Specific [place] 1.020 Last Edit by Mirian Manning, RMA on 06/04/24 08:39 UA Ketone Negative Last Edit by Mirian Manning, RMA on 06/04/24 08:39 UA Bilirubin 0 mg/dL Last Edit by Mirian Manning, RMA on 06/04/24 08:39 UA Glucose 3 mg/dL Last Edit by Yulissaannalisakatlin Manning, RMA on 06/04/24 08:39 AMB Hemoglobin A1c AMB Hemoglobin A1c 13.9 % Last Edit by Mirian Manning, RMA on 06/04/24 08:42 Results Reviewed Results Reviewed: Laboratory Last Values Hgb A1c (Clinic) 13.9 % (4.0-6.0) H 06/04/24 08:36 Urine pH (Auto) 6.0 06/04/24 08:36 Specific [place] (Auto) 1.020 06/04/24 08:36 Urine Protein (Auto) 0 mg/dL 06/04/24 08:36 Glucose (UA)(Auto) 3 mg/dL 06/04/24 08:36 Urine Ketones (Auto) Negative 06/04/24 08:36 Urine Blood (Auto) 1 Jovany/uL 06/04/24 08:36 Urine Nitrite (Auto) Negative 06/04/24 08:36 Urine Bilirubin (Auto) 0 mg/dL 06/04/24 08:36 Urine Urobilinogen (Auto) 0 mg/dL 06/04/24 08:36 Leukocyte Esterase (Auto) 0 Monse/uL 06/04/24 08:36 Coding Level of Care Code Est Pt Level 4 (73880) Complex EM visit Add On G2211 Diagnoses Type 2 diabetes mellitus with hyperglycemia, without long-term current use of insulin E11.65 Diabetes mellitus type: type 2 Diabetes mellitus residential insulin use: without residential use Diabetes mellitus complication status: with hyperglycemia Obesity, morbid, BMI 50 or higher E66.01 Blurry vision H53.8 Iron deficiency anemia due to chronic blood loss D50.0 Iron deficiency anemia type: chronic blood loss Essential hypertension I10 Additional Codes BRITANY-7 Assessment Billing - BRITANY-7 Assessment Tool: BRITANY-7 Assessment 06010 ([id number]) PHQ-9 - 31846 - PHQ-9 Billing: Yes ([id number]) Time Spent (min) 25 Assessment & Plan Assessment & Plan (1) Diabetes mellitus: Code(s): E11.9 - Type 2 diabetes mellitus without complications Category: Medical Qualifiers: Diabetes mellitus type: type 2 Diabetes mellitus residential insulin use: without longshore equipment operator use Diabetes mellitus complication status: with hyperglycemia Qualified Code(s): E11.65 - Type 2 diabetes mellitus with hyperglycemia (2) Obesity, morbid, BMI 50 or higher: Code(s): E66.01 - Morbid (severe) obesity due to excess calories Category: Medical (3) Blurry vision: Code(s): H53.8 - Other visual disturbances Category: Medical (4) Iron deficiency anemia: Code(s): D50.9 - Iron deficiency anemia, unspecified Category: Medical Qualifiers: Iron deficiency anemia type: chronic blood loss Qualified Code(s): D50.0 - Iron deficiency anemia secondary to blood loss (chronic) (5) Essential hypertension: Code(s): I10 - Essential (primary) hypertension Category: Medical Plan I will assess the patient's recent symptoms of urinary frequency, dry mouth, and blurry vision due to potential diabetes exacerbation, conduct urine testing, and monitor blood pressure. We'll review medication compliance regarding vitamins. I will provide an ophthalmology referral, discuss risks and benefits of weight management, and plan follow-up as needed. Patient was informed and verbally consented to the use of an ambient scribe for clinic note documentation during this visit. I discussed with the patient the potential worsening of her diabetes and the need for urine testing to check glucose levels. We examined her blood pressure-related issues and possible adjustments to her current medications. I highlighted the importance of adhering to her medication regimen, particularly vitamin D and C supplementation, to improve her anemia and vitamin D status. Regarding her blurry vision, I recommended a consult with ophthalmology. We also discussed possible re-engagement in a weight management program, considering surgical options while considering the long-term benefits and risks of such an intervention. Orders: Orders Lipid Panel Today E78.5 - Hyperlipidemia, unspecified Thyroid Stimulating Hormone Today R79.89 - Other specified abnormal findings of blood chemistry AMB Hemoglobin A1c Today R73.02 - Impaired glucose tolerance (oral) Vitamin D 25-OH Total Today E55.9 - Vitamin D deficiency, unspecified Complete Blood Count Auto Diff Today D64.9 - Anemia, unspecified IRON PROFILE Today D64.9 - Anemia, unspecified Comprehensive [place]. Panel Fast Today R73.02 - Impaired glucose tolerance (oral) Free T4 (Free Thyroxine) Today R79.89 - Other specified abnormal findings of blood chemistry AMB Urinalysis Automated Today R35.0 - Frequency of micturition Microalbumin, Random (w Creat) Today E11.9 - Type 2 diabetes mellitus without complications, R80.9 - Proteinuria, unspecified Insulin Auto Antibody Today E11.9 - Type 2 diabetes mellitus without complications Glutamic acid decarboxylase Ab Today E11.9 - Type 2 diabetes mellitus without complications Referrals Ophthalmology Referral H53.8 - Other visual disturbances Medical Weight Management Referral E66.01 - Morbid (severe) obesity due to excess calories Medications: New metformin 500 mg PO BID 90 days 180 tabs 1RF E11.9 - Type 2 diabetes mellitus without complications blood sugar diagnostic (FreeStyle Lite Strips) Use 1 strip once a day 100 ea 3RF E11.9 - Type 2 diabetes mellitus without complications lancets (FreeStyle Lancets) Use 1 lancet once a day 100 ea 3RF E11.9 - Type 2 diabetes mellitus without complications blood-glucose meter (FreeStyle Lite Meter kit) As directed 1 ea 0RF E11.9 - Type 2 diabetes mellitus without complications Refilled cholecalciferol (vitamin D3) 50 mcg PO DAILY 90 days 90 caps 1RF ferrous sulfate 325 mg PO BID 90 days 180 tabs 1RF D50.9 - Iron deficiency anemia, unspecified Patient Instructions: - Perform urine test as advised. - Monitor blood pressure regularly and note any significant changes. - Continue taking all prescribed medications and supplements, including vitamin D and C. - Follow up with ophthalmology for vision concerns. - Consider participation in a weight management program, and discuss potential surgical options if interested.
[2024-06-04 08:14] VITALS: BP 142/100; BMI 51.4
== END 2024-06-04 08:58 | disposition home or self-care (01) ==
LOC: HO.HMCH 08:03
PROVIDERS: PCP Internal Medicine; Visit Provider Internal Medicine
DX: E11.65 Type 2 diabetes mellitus with hyperglycemia (principal); E66.01 Morbid (severe) obesity due to excess calories; Z68.43 Body mass index [BMI] 50.0-59.9, adult; H53.8 Other visual disturbances; D50.0 Iron deficiency anemia secondary to blood loss (chronic); I10 Essential (primary) hypertension; R35.0 Frequency of micturition; R73.02 Impaired glucose tolerance (oral)

== ENCOUNTER → 2024-06-04 08:03 | Outpatient (BNVA) | payer OTHER, SELFPAY | PROVIDERS: PCP Internal Medicine; Visit Provider Internal Medicine | DX: E11.65 Type 2 diabetes mellitus with hyperglycemia (principal); E66.01 Morbid (severe) obesity due to excess calories; Z68.43 Body mass index [BMI] 50.0-59.9, adult; H53.8 Other visual disturbances; D50.0 Iron deficiency anemia secondary to blood loss (chronic); I10 Essential (primary) hypertension; R35.0 Frequency of micturition | CPT/HCPCS: 81003; 83036; 96127 ==

== ENCOUNTER 2024-06-24 08:39 | Outpatient (REF) | payer OTHER, SELFPAY ==
[2024-06-24 08:49] LABS: MANUAL DIFF FLAG NO
[2024-06-24 09:10] LABS: Basophils Percent Auto 0.3 % (0-2); Eosinophils Absolute Auto 0.1 X10*3/uL (0.0-0.4); Hematocrit 39.6 % (37.0-47.0); Hemoglobin 13.1 g/dl (12.0-16.0); Imm Gran Abs Auto 0.05 X10*3/uL (0.00-0.03); Imm Gran Pct Auto 0.5 % (0.0-0.4); Lymphocytes Absolute Auto 2.9 X10*3/uL (1.2-4.9); Mean Corpuscular HGB Conc 33.1 g/dl (31.0-35.0); Mean Corpuscular Hemoglobin 27.8 pg (27.0-33.0); Mean Corpuscular Volume 84.1 fL (80.0-98.0); Mean Platelet Volume 10.7 fL (9.4-12.3); Monocytes Absolute Auto 0.7 X10*3/uL (0.1-1.2); Monocytes Percent Auto 6.4 % (2-11); Neutrophils Absolute Auto 6.7 x10*3/uL (2.0-8.3); Neutrophils Percent Auto 63.8 % (45-73); Platelet Count 297 X10*3/uL (160-400); Red Blood Count 4.71 X10*6/uL (4.20-5.50); Red Cell Distribution Width 14.5 % (11.0-16.0); White Blood Count 10.4 X10*3/uL (4.8-10.8)
[2024-06-24 09:50] LABS: Alanine Aminotransferase 45 U/L (0-31); Albumin Level 3.9 g/dL (3.5-5.0); Alkaline Phosphatase 115 U/L (39-117); Anion Gap 14 (12-20); Aspartate Amino Transferase 35 U/L (5-31); Bilirubin Total 0.7 mg/dL (0.0-1.0); Blood Urea Nitrogen 13 mg/dL (9-16); Calcium 9.4 mg/dL (8.4-10.2); Carbon Dioxide 27 mmol/L (22-29); Chloride 97 mmol/L (96-108); Cholesterol 159 mg/dL (<200); Estimated Glomerular Filt Rate > 60; Glucose Fasting 342 mg/dL (60-99); HDL Cholesterol 26 mg/dL (>40); Iron 64 mcg/dL (30-160); LDL Cholesterol Calculated 76 mg/dL (<100); Percent Iron Saturation 24 % (15-50); Potassium 4.5 mmol/L (3.3-5.1); Sodium 133 mmol/L (135-145); Total Iron Binding Capacity 271 mcg/dL (228-428); Triglycerides 289 mg/dL (<150); Unsaturated Iron Binding 207 ug/dL
[2024-06-24 09:56] LABS: Creatinine Urine 142.69 mg/dL; Microalbum/Creatinine Ratio Ur 44.1 ug/mg cr (<30)
[2024-06-24 10:16] LABS: Free T4 (Free Thyroxine) 1.05 ng/dL (0.71-1.85); Thyroid Stimulating Hormone 3.74 uIU/mL (0.32-4.0); Vitamin D 25-OH Total 25.7 ng/mL (>30)
[2024-06-26 19:49] LABS: Glutamic acid decarboxylase Ab <5 IU/mL (<5)
[2024-06-29 23:13] LABS: Insulin Auto Antibody <0.4 U/mL (<0.4)
== END 2024-06-24 08:40 | disposition home or self-care (01) ==
LOC: HO.LAB 08:39
PROVIDERS: PCP Internal Medicine; Visit Provider Internal Medicine
DX: R80.9 Proteinuria, unspecified (principal); E78.5 Hyperlipidemia, unspecified; R79.89 Other specified abnormal findings of blood chemistry; E55.9 Vitamin D deficiency, unspecified; D64.9 Anemia, unspecified; E11.65 Type 2 diabetes mellitus with hyperglycemia
CPT/HCPCS: 36415; 80053; 80061; 82043; 82306; 82570; 83540; 84439; 84443; 85025; 86337; 86341